=== PATIENT | female | born 1940 | race Caucasian/White ===

== ENCOUNTER 2016-08-18 10:14 | Inpatient (IN) ==
[2016-08-18 10:55] LABS: INR 1.4; Prothrombin Time 14.8 Seconds (9.4-12.1)
[2016-08-18] MEDS ORDERED: Nitroglycerin 1,000 MCG/10 ML VIAL IV ONE (11:25)
[2016-08-18] MEDS ORDERED: Heparin 1,000 UNITS/500 mL NS 500 ML ONE (11:25)
[2016-08-18] MEDS ORDERED: 0.9 % Sodium Chloride 1,000 ML ONE (11:25)
[2016-08-18] MEDS ORDERED: *HR* Heparin 10,000 UNIT/10 ML VIAL ONE (11:25)
--- NOTE | 2016-08-18 11:43 | History & Physical Report ---
Date of Encounter: 08/18/16 Time of Encounter: 11:00 24 Hour HP Update - Instructions Instructions: If the History and Physical is less than 30 days old and was completed prior to A.M. admission and or procedure and has NOT been updated on calendar day of procedure please complete this update prior to performing procedure. - Update Patient reports changes in Medical Condition: No Changes in examination, assessment, or condition: No Changes in Medication: No Preop tests/diagnostics Reviewed: Yes Surgery Remains Indicated: Yes Consent for Planned Operative Procedure(s) Verified: Yes - Pre-Operative Checklist Preoperative Checklist Indicated: No Prophylactic Antibiotic Ordered: No Home Medications Include Beta Didi: Yes Beta Didi Taken Today (Day of Surgery): Yes Beta Didi Taken Yesterday (Day Prior to Surgery): Yes Is VTE Prophylaxis Indicated?: NO
--- NOTE | 2016-08-18 11:44 | Pre-Sedation Evaluation ---
Pre-sedation evaluation - Pre-sedation checklist Date of procedure: 08/18/16 Procedure: C H&P (including ROS) documented in medical record: Yes Previous reaction to sedatives/anesthetics: No Dietary Status: NPO after Midnight Airway Assessment: Patient can open mouth completely, TMJ function normal, Micrognathia (under-bite, receding chin) absent, Neck with adequate range of motion Dentition: No loose teeth or bridges Possible difficult airway: No ASA Classification *see protocol: CLASS II-Mild systemic disease Plan of Care: Pt appropriate candidate for procedure/moderate/conscious sedation , Risks/benefits of procedure/sedation discussed w/ patient/family
[2016-08-18] MEDS: 0.9 % Sodium Chloride 1,000 ML IVC SCH (11:53)
[2016-08-18] MEDS ORDERED: *HR* FentaNYL (PF) 100 MCG/2 ML VIAL ONE (12:22)
[2016-08-18] MEDS ORDERED: *HR* Midazolam HCl 2 MG/2 ML VIAL ONE (12:22)
[2016-08-18] MEDS ORDERED: Nitroglycerin 0.4 MG TAB.SUBL SL PRN (13:23)
[2016-08-18] MEDS ORDERED: *HR* Heparin 5,000 UNIT/ML VIAL IVP PRN ×2 (13:27)
[2016-08-18] MEDS ORDERED: *HR* Heparin 5,000 UNIT/ML VIAL IVP ONE (13:27)
--- NOTE | 2016-08-18 13:47 | Cardiothoracic Consult Note ---
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 She has had previous abnormal stress test and was seen in the cardiology office earlier this week. She was recommended for admission; however, declined. She did consent to outpatient workup and underwent cardiac catheterization today. She was found to have severe 3 vessel CAD and LVEF 30%. The patient has been recommended for CABG. Prior to this procedure, the patient will need an echocardiogram as well as bilateral lower extremity venous duplex to assess the suitability of the greater saphenous vein for conduit material. The operation will be performed by Dr. Jone Jordan early next week. The assessment and plan as outlined above was discussed with the patient and/or family members who expressed understanding and agreement. All questions were answered. Qualifiers: Coronary Disease-Associated Artery/Lesion type: [place] artery [place] vs. transplanted heart: [place] heart Associated angina: with unstable angina Qualified Code(s): I25.110 - Atherosclerotic heart disease of [place] coronary artery with unstable angina pectoris - History of Present Illness Consult date: 08/18/16 Requesting physician: Dania Mix Consult reason: CABG evaluation. Chief complaint: Chest burning History of present illness: Ms. Stephen is a 76 year old lady with hypercholesterolemia and a remote history of stage IIIB (T4 N2 M0) left lung squamous cell carcinoma. The patient has had previous abnormal stress test, the most recent performed April 23, 2015. The exercise portion revealed significant worsening of the baseline ST changes and LVEF 71%. The patient states that 6-7 days ago she began experiencing chest burning which radiated to her back. She was evaluated at [facility] emergency department and thought to have a community acquired pneumonia. She was treated with antibiotics and asked to be seen by her ink technician. The patient was seen by the cardiology office on Sunday, August 16, 2016. She described her symptoms and she was recommended for admission and cardiac workup. She declined admission and stated that she wished to be worked up as an outpatient. Cardiac catheterization today revealed severe 3 vessel CAD and LVEF 30%. In particular the patient has a completely occluded mid LAD after the D1 branch which fills distally via left to left collaterals. The LCx has a 90-95% mid lesion, a 100% occluded OM1 with distal filling via left to left collaterals , a 90% mid RCA lesion, a completely occluded mid RCA with distal filling via [id number] collaterals. The patient has been recommended for CABG. Past Med Surg Social Fam HX - Past Medical History Medical history: cancer (Stage IIIB (T4N2M0) left lung squamous cell cancer), coronary artery disease, DVT, hyperlipidemia, pulmonary embolus, venous stasis ( Left lower extremity.), other (Pericarditis) Psychiatric history: no psych history - Past Surgical History Surgical History: hysterectomy - Social History Smoking Status: Former smoker Packs per day: 1 ppd X 15yrs (Quit 1970) Smokeless Tobacco Status: No Alcohol use: none Drug use: none Occupational status: retired Current living situation: Home - Independent Activity Level: Independent ambulation Recent Out of Country Travel Within the Last 8 Weeks: No Exposure or Possible Exposure to Illness During Travel: No Medications and Allergies Cyanocobalamin/FA/Pyridoxine [[place]bee Tablet] 1 each PO DAILY 10/04/15 [History] Levothyroxine [Synthroid] 88 mcg PO 0630 10/04/15 [History] Pravastatin Sodium [Pravachol] 40 mg PO DAILY 10/04/15 [History] Warfarin [Coumadin] 5 mg PO 3XW 10/04/15 [History] Warfarin [Coumadin] 7.5 mg PO 3XW 10/04/15 [History] Cephalexin [Keflex] 500 mg PO TID #30 capsule 08/13/16 [Rx] Aspirin Enteric Coated [Aspirin EC] 81 mg PO DAILY 08/18/16 [History] Isosorbide MONOnitrate (24 HR) [Imdur] 30 mg PO DAILY 08/18/16 [History] Levothyroxine [Synthroid] 88 mcg PO DAILY 08/18/16 [History] Allergies rofecoxib [From Vioxx] Allergy (Verified 08/18/16 10:36) Palpitations All Systems Review: A 10-system review of systems was performed and is negative for pertinent findings except as documented above in the HPI. Physical Examination Vital Signs, Last 4 Hours Temp Pulse Resp BP Pulse Ox 08/18/16 11:36 98.6 F 91 18 104/67 95 General: Conversant, No Apparent Distress Neck: No JVD, Normal carotid pulses Cardiac: Reg Rate and Rhythm, Normal S1 and S2, No Murmur Lungs: Normal Breath Sounds, No Wheeze, Rales, Rhonchi Neuro: Alert and responsive, No focal deficits noted Vascular: Normal capillary refill Abdomen: Soft, Non-tender Skin: No rashes noted on visualized skin Musculoskeletal: No Chest Wall Tenderness Extremities: No Clubbing, No Cyanosis, No Edema Results Lab Results, Last 24 hours 08/18/16 10:36 INR 1.4 D Consult Discharge Plan - Plan Referrals: Jarvis Isaacs MD [Primary Care Provider] -
--- NOTE | 2016-08-18 14:49 | Invasive Diagnostic Lab Proc ---
Name: Stella Stephen Date of Study: 08/18/2016 Date: 1940 Ht: 68.0in Medical Record#: [id number] Age: 76 Wt: 175.00lb Gender: Female BSA: 1.93 Order #: [id number] BMI: 26.61 Physicians Procedure Physician: Dania Mix MD, [facility] Referring MD: Jarvis Isaacs MD Referring MD: Staff Name Position Time In Yobany Abad RN Pre op Sites, Christy RT (R) Pre-Op Nurse Christy Almeida RT (R) Monitor 12:22 PM Evangelist Almeida RT (R) Scrub 12:23 PM Christel Khanna RN Rivet Bucker 12:23 PM Indications Indication Abnormal Test - Stress Procedures Performed Procedure L HRT ARTERY/VENTRICLE ANGIO Pre-Procedure Checklist Informed consent is complete signed and on chart. H\\T\\P is on chart. ID band is on and ID verified with patient. Patient NPO for procedure The procedure was described for the patient and questions were answered. Blood Pressure: 104/67 ECG is on chart. Rhythm: NSR Plan of Care Patient will tolerate the procedure without complications. Adequate level of comfort will be maintained. Hemodynamics will remain stable Patient will recover from procedure without complications. Respiratory function will be maintained. Cardiac rhythm will remain stable. Patient temperature will be maintained. Patient and/or family have verbalized understanding of the procedure. Patient Education Chief Complaint/Reason for Test: Cardiac Cath Developmental Category: Geriatric (65+ years) Developmentally Appropriate for Age: Yes Learning Barriers: None Education Needs: Procedure Education Method: Verbal Information Taught: Cardiac Cath Educational Evaluation: Able to repeat information Intravenous Access Time IV Size Location DC'd Fluid/Drip Rate Units RN Started with 20g 1 1/4" Lt Antecubital 0.9NaCl 25 ml/hr Sites, Christy RT (R) Allergies rofecoxib Vital Signs Time BP (mmHg) HR (bpm) O2 Sat. RR (bpm) LOC 11:45 AM 104 / 67 91 98 % 16 5 = Fully awake and oriented or at pre-proc level 12:26 PM / % 5 = Fully awake and oriented or at pre-proc level 12:26 PM / % 4 = Oriented but drowsy 12:23 PM 103 / 64 101 96 % 12:28 PM 95 / 59 92 87 % 26 12:33 PM 97 / 63 97 96 % 9 12:38 PM 94 / 61 104 97 % 12:43 PM 95 / 68 104 98 % 01:20 PM 107 / 72 95 98 % 16 5 = Fully awake and oriented or at pre-proc level 01:33 PM 114 / 70 101 98 % 16 5 = Fully awake and oriented or at pre-proc level 01:45 PM 104 / 73 97 98 % 16 5 = Fully awake and oriented or at pre-proc level 02:05 PM 112 / 73 102 96 % 16 5 = Fully awake and oriented or at pre-proc level 02:30 PM 114 / 79 110 94 % 18 5 = Fully awake and oriented or at pre-proc level Procedural Medications Time Medication Dose Units Method Given By 12:26 PM Oxygen 2 L/min nasal cannula Christel Khanna RN 12:26 PM Versed 2 mg Intravenous Christel Khanna RN 12:26 PM Fentanyl 50 mcg Intravenous Christel Khanna RN 12:29 PM Oxygen 4 L/min nasal cannula Christel Khanna RN 12:33 PM Lidocaine 2% 13 ml Subcutaneous Dania Mix MD, [facility] ASA Classification: CLASS II- Mild systemic disease (i.e. well-controlled diabetes, hypertension, asthma, cigarette smoking) Jimmie Score Preprocedure Postprocedure Activity 2- Moves 4 extremities sustained head lift Activity 2- Moves 4 extremities sustained head lift Circulation 2- SBP +/= 20 points of pre-anesthetic level Circulation 2- SBP +/= 20 points of pre-anesthetic level Consciousness 2- Awake and alert oriented x 3 Consciousness 2- Awake and alert oriented x 3 O2 Saturation 2- Able to maintain O2 satruation of 92% on room air O2 Saturation 2- Able to maintain O2 satruation of 92% on room air Respiratory 2- Able to deep breathe and cough well Respiratory 2- Able to deep breathe and cough well Total Score 10 Total Score 10 Contrast Agent: Isovue Diagnostic Contrast: 63 ml Total Contrast: 63 ml Fluoro Dose: 238 mGy Procedure Log Time Note Enter By 11:14 AM Pt arrived to labour market economist 2 at 12:16 tsites 11:48 AM CathStat 12:14 PM Physician arrived 12:14 tsites 12:14 PM Meet and greet completed tsites 12:14 PM Sign in performed according to hospital policy. tsites 12:14 PM Procedure start 12:14 tsites 12:15 PM Case Delayed no tsites 12: PM Christy Almeida RT (R) Position: Monitor Time in: : tsites 12:23 PM Evangelist Almeida (R) Position: Scrub Time in: tsites 12:23 PM Christel Khanna RN Position: Rivet Bucker Time in: tsites 12:23 PM Patient charges- Angio tray pack, Navilyst 3mm J, Pulse Oximetry and ACIST tubing and transducer tsites 12:23 PM IV Supplies used: J loop Angio Cath. tsites 12:23 PM Vitals capture started with the following parameters, Patient=Adult, Interval=5 min, Initial Zzsxycxw=708 mmHg, Deflation Rate=5 mmHg, Cuff placed on Left Leg 12:23 PM Hair removed from procedure site in procedure lab using clippers. Bilateral groin prepped with Chloraprep by Evangelist Almeida (Nicole), safety strap applied then patient was draped. Skin intact. tsites 12: PM YY=640 bpm, JACM=894/64 mmhg, SpO2=96.0 % 12:24 PM Recorded ECG: DI=234 Condition=Condition 1 12: PM ASA Class CLASS II- Mild systemic disease (i.e. well-controlled diabetes, hypertension, asthma, cigarette smoking) twilson 12: PM Time: 12: Oxygen on at 2 L/min per nasal cannula by Christel Khanna RN twilson : PM Time: 12: Versed 2 mg Intravenous Given by Christel Khanna RN twilson 12: PM Time: 12: Fentanyl 50 mcg Intravenous Given by Christel Khanna RN ilson 12: PM Time: 12: Patient comfortable and pain free: Yes twilson 12: PM Time: 12:LOC: 5 = Fully awake and oriented or at pre-proc level twilson 12: PM HR=92 bpm, NIBP=95/59 mmhg, SpO2=87.0 %, Resp=26 B/min 12: PM Time: 12: Oxygen on at 4 L/min per nasal cannula by Christel Khanna RN ilson 12:31 PM Pressure channel 1 zeroed. 12:32 PM Time out performed according to hospital policy twilson 12:33 PM Time: : 13 ml Lidocaine 2% to right groin Subcutaneous Given by Dania Mix MD, [facility] twilson 12:33 PM HR=97 bpm, NIBP=97/63 mmhg, SpO2=96.0 %, Resp=9 B/min 12:34 PM Access obtained by percutaneous puncture. 5Fr 10cm Terumo [place] sheath placed in right Femoral artery. [id number] twilson 12:34 PM 5Fr FL 4 catheter inserted over the wire DNC twilson 12:34 PM Wire removed, intact. twilson 12:34 PM Recorded Pressure: Ao, HR=95, Condition=Condition 1 (Aorta) Ao 68/50/59 12:35 PM LCA angiography performed in multiple views. twilson 12:35 PM Recorded Pressure: Ao, HR=93, Condition=Condition 1 (Aorta) Ao 81/63/71 12:36 PM Wire reinserted. twilson 12:36 PM 5Fr FR 4 catheter inserted over the wire DNC twilson 12:36 PM Wire removed, intact. twilson 12:37 PM Recorded Pressure: Ao, DV=436, Condition=Condition 1 (Aorta) Ao 84/68/76 12:37 PM RCA angiography performed in multiple views. twilson 12:37 PM Recorded Pressure: Ao, KK=834, Condition=Condition 1 (Aorta) Ao 82/68/75 12:38 PM Catheter removed twilson 12:38 PM 5Fr Pigtail catheter inserted over the wire DNC twilson 12:38 PM Catheter selectively placed in left ventricle twilson 12:38 PM MN=045 bpm, NIBP=94/61 mmhg, SpO2=97.0 % 12:38 PM Wire removed, intact. twilson 12:39 PM Pressure channel 1 zeroed. 12:39 PM Bolus angiogram of left Ventricle complete: 8 ml/sec for a total of 24 mls twilson 12:39 PM Recorded Pressure: LV, DU=523, Condition=Condition 1 (Left Ventricle) LV 80/28/29 12:39 PM Catheter removed twilson 12:39 PM Recorded Pressure: LV, Ao, BD=339, Condition=Condition 1 (Left Ventricle) LV 86/42/51, (Aorta) Ao 76/60/68 12:40 PM Physician reviewing films twilson 12:40 PM Cardiothoracic surgeon consulted by physician twilson 12:41 PM Bolus angiogram of right Femoral complete: 2 ml/sec for a total of 4 mls twilson 12:41 PM Time: 12:26 Patient comfortable and pain free: Yes twilson 12:41 PM Time: 12:26LOC: 4 = Oriented but drowsy twilson 12:42 PM Procedure completed at 12:42 twilson 12:43 PM Sign out completed: Radiation Dose 237.65 mGy Fluoro Time: 0.9 Isovue 370 - 200ml contrast 63.4 ml given by Dania Mix MD, [facility]. Complications: NoneCardiac Rehab Consult needed: NoConfirmed administered medications: Yes twilson 12:43 PM Isovue 370 - 200ml,1 Bottle(s) used. twilson 12:43 PM Arterial sheath pulled, Mynx closure device used and was Successful [id number] S/N. twilson 12:43 PM Post ECG NSR twilson 12:43 PM IF=359 bpm, NIBP=95/68 mmhg, SpO2=98.0 % 12:44 PM Post Blood Pressure 95/68 twilson 12:44 PM 12:44 Post Pulses Bilateral DP \\T\\ PT 2+ twilson 12:44 PM 12:44 Post Pulses Bilateral radial 2+ twilson 12:44 PM Information taught Cardiac Cath and Mynx twilson 12:45 PM Education needs Procedure, Plan of Care, and Responsibilities of Patient in Care twilson 12:45 PM Learning barriers :None twilson 12:45 PM Education Methods Verbal twilson 12:45 PM Education evaluation Able to repeat information twilson 12:45 PM Site status No bleeding/hematoma - Rt Groin as reported by Evangelist Almeida RT (R) at 12:45 twilson 12:45 PM Opsite applied twilson 12:47 PM Lesion found in Distal RCA. Pre Stenosis: 100 Pre LAURA Flow: twilson 12:48 PM Lesion found in Mid LAD. Pre Stenosis: 100 Pre LAURA Flow: twilson 12:49 PM Lesion found in Mid Circumflex. Pre Stenosis: 99 Pre LAURA Flow: twilson 12:49 PM Vitals capture stopped. 12:49 PM Lesion found in 1st Marginal. Pre Stenosis: 100 Pre LAURA Flow: twilson 12:49 PM Circumflex, Obtuse Marginal, Left Posterior Descending, and Left Posterolateral Coronary Arteries with 100 % stenosis. If graft is supplying this area, 0 % stenosis twilson 12:49 PM Mid/Distal Left Anterior Descending Coronary Artery and diagonal branches with 100% stenosis. If graft is supplying this area, 0 % stenosis twilson 12:49 PM Right Coronary, Right Posterior Descending Arteries with Right Posterolateral and Acute Marginal branches with 100 % stenosis. If graft is supplying this area, 0 % stenosis twilson 12:50 PM Family placed in consult room. twilson 12:52 PM Bed request placed. twilson 01:01 PM Patient will go to [facility]. twilson 01:03 PM Report given to Christy Saunders RN Pt taken to Holding room Room #1. 13:03 twilson 01:03 PM Delay to floor Room not clean twilson 01:03 PM Coronary Dominance: right twilson 01:03 PM Lesion found in Proximal RCA. Pre Stenosis: 40 Pre LAURA Flow: twilson 01:04 PM Lesion found in Mid RCA. Pre Stenosis: 99 Pre LAURA Flow: twilson 01:04 PM Lesion found in LMCA. Pre Stenosis: 40 Pre LAURA Flow: twilson 01:04 PM Lesion found in Proximal LAD. Pre Stenosis: 50 Pre LAURA Flow: twilson 01:04 PM Lesion found in Proximal Circumflex. Pre Stenosis: 30 Pre LAURA Flow: twilson 01:04 PM Left Main Coronary Artery with 40% stenosis twilson 01:04 PM Proximal Left Anterior Descending Coronary Artery with 50% stenosis. If graft is supplying this territory, 0 % stenosis. twilson 01:05 PM Patient will recover in holding room 1 until 2NE19 bed is ready. twilson 01:09 PM Patient out of room: 13:09 twilson 01:20 PM pt checked into HR 1, Dr. Collado at bedside with family. No complaints at this time, post cath meal tray ordered [email or web address] 01:41 PM pt and family given coffee [email or web address] 02:04 PM pt's family assisted with belongings [email or web address] 02:04 PM pt assisted with post cath meal tray [email or web address] 02:39 PM Report given to Vaishnavi RODRIGUEZ and patient taken to [facility] Complications Complication None Hemodynamics Pressures Site Systolic/A Wave Diastolic/V Wave Mean AO 68 50 59 AO 81 63 71 AO 84 68 76 AO 82 68 75 LV 80 28 29 LV 86 42 51 AO 76 60 68 Post Procedure Information Blood Pressure: 95/68 mmHg Rhythm: NSR Post procedural instructions were given Surgery consult for CABG Closure Device Time Device Success/Fail 08/18/2016 12:46:00 PM MynxGrip Successful Site Checks Time Location Status Staff Sheath In? Note 12:45 PM Rt Groin No bleeding/hematoma Evangelist Almeida RT (R) 01:19 PM Rt Groin No bleeding/ No Hematoma Angella Velázquez RN 01:30 PM Rt Groin No bleeding/ No Hematoma Angella Velázquez RN 01:45 PM Rt Groin No bleeding/ No Hematoma Yeni Cruz RN 02:05 PM Rt Groin No bleeding/ No Hematoma Yeni Cruz RN 02:30 PM Rt Groin No bleeding/ No Hematoma Yobany Abad RN Pulses Time Site Pre-Procedure Post-Procedure Note 08/18/2016 11:38:00 AM Bilateral DP \\T\\ PT 2+ 08/18/2016 11:45:00 AM Bilateral radial 2+ 12:44:00 PM Bilateral DP \\T\\ PT 2+ 12:44:00 PM Bilateral radial 2+ 08/18/2016 1:20:00 PM Bilateral DP \\T\\ PT 2+ 08/18/2016 1:41:00 PM Bilateral DP \\T\\ PT 2+ 08/18/2016 2:05:00 PM Bilateral DP \\T\\ PT 2+ 08/18/2016 2:30:00 PM Bilateral DP \\T\\ PT 2+ Updated by Christy Almeida RT (R) on 08/18/2016 2:40:02 PM electronically signed on 08/18/2016 2:41:07 PM with status of Final
[2016-08-18 16:15] LABS: Hemoglobin 14.5 g/dL (11.5-15.4); Mean Corpuscular Hemoglobin 31.7 pg (28.0-33.3); Mean Corpuscular Volume 96.3 fL (83.0-100.0); Mean Platelet Volume 10.2 fL (9.4-12.4); Platelet Count 182 K/mcL (140-400); Red Blood Count 4.57 M/mcL (3.82-4.97); Red Cell Distribution Width 13.1 % (11.5-14.5)
[2016-08-18 16:21] LABS: INR 1.3; Prothrombin Time 14.4 Seconds (9.4-12.1)
[2016-08-18 16:24] LABS: Activated Partial Thrombo Time 31.3 Seconds (26.0-36.0)
--- NOTE | 2016-08-18 17:18 | Invasive Diagnostic Lab ---
Name: Stella Stephen Date of Study: 08/18/2016 Date: 1940 Ht: 172.7 cm /68.0 in Medical Record#: [id number] Age: 76 Wt: 79.4 kg / 175.00 lb Account/Order#: [id number] Gender: Female BSA: 1.93 Order #: [id number] Fluoro Dose: 238 mGy BMI: 26.61 Procedure Physician: Dania Mix MD, [facility] Referring MD: Jarvis Isaacs MD Referring MD: Procedures Performed: LEFT HEART CATH Indications: Abnormal Test - Stress Impressions: There is severe three vessel coronary artery disease. There is moderately severe LV Dysfunction EF 35% Recommendations: Optimal medical therapy of patient's disease. Aggressive risk factor modification. Evaluate for coronary artery bypass surgery. History/Risk Factors: dvt pe Dyslipidemia Procedure Access obtained in the right Femoral artery by percutaneous puncture Complications: None Contrast: Isovue 63ml Closure Device: MynxGrip Hemodynamics: Pressures Site Systolic/ A Wave Diastolic/ V Wave End Diastolic/ Mean HR AO 68 50 59 95 AO 81 63 71 93 AO 84 68 76 105 AO 82 68 75 104 LV 80 28 29 104 LV 86 42 51 103 AO 76 60 68 103 LV Ventriculography Ejection Method: LV Gram Ejection Fraction: 35% Wall Motion: ORTIZ Anterobasal Mild Hypokinesis Anterolateral Mild Hypokinesis Apical: Mild Hypokinesis Inferoapical Moderate Hypokinesis Inferobasal Akinesis Coronary Dominance: right Lesion Findings/Interventions * Left Main Coronary Artery There is a 40% stenosis in the LMCA. * Left Anterior Descending There is a 50% stenosis in the Proximal LAD. There is a 100% stenosis in the Mid LAD- HAND HARDENER. Mid/distal LAD fill via L to L collaterals. * Circumflex There is a 30% stenosis in the Proximal Circumflex. There is a 99% stenosis in the Mid Circumflex- calcified. There is a 99% stenosis in the 1st Marginal. Fills via L to L collaterals. * Right Coronary Artery There is a 40% stenosis in the Proximal RCA. There is a 99% stenosis in the Mid RCA. There is a 100% stenosis in the Distal RCA- HAND HARDENER. Distal RCA and R PDA fill via L to R and R to R collaterals. Updated by RT mAilcar (R) on 08/18/2016 1:09:37 PM Dania Mix MD, [facility] electronically signed on 08/18/2016 5:12:29 PM with status of Final
[2016-08-18] MEDS: Heparin 25,000 UNIT/500 ML D5W 25,000 UNIT/500 ML MLS IVC SCH (19:51)
[2016-08-18] MEDS: Acetaminophen 325 MG TABLET PO PRN (19:56)
[2016-08-19] MEDS: 0.9 % Sodium Chloride 1,000 ML IVC SCH ×2 (02:25→11:50)
[2016-08-19 02:33] LABS: Basophils % 0.4 %; Eosinophils # 0.2 K/mcL (0.0-0.6); Eosinophils % 2.3 %; Hematocrit 38.6 % (35.3-44.9); Hemoglobin 12.7 g/dL (11.5-15.4); Immature Granulocytes % 0.5 % (0-4); Immature Platelets 3.5 % (1.1-6.1); Lymphocytes # 1.2 K/mcL (0.6-4.6); Lymphocytes % 11.8 %; Mean Corpuscular HGB Conc 32.9 g/dL (31.6-35.5); Mean Corpuscular Hemoglobin 31.8 pg (28.0-33.3); Mean Corpuscular Volume 96.7 fL (83.0-100.0); Mean Platelet Volume 10.3 fL (9.4-12.4); Monocytes % 10.1 %; Neutrophils # 7.5 K/mcL (1.6-8.9); Platelet Count 164 K/mcL (140-400); Red Blood Count 3.99 M/mcL (3.82-4.97); Red Cell Distribution Width 13.2 % (11.5-14.5); Segmented Neutrophils % 74.9 %
[2016-08-19 02:52] LABS: BUN/Creatinine Ratio 23 (6-26); Blood Urea Nitrogen 22 mg/dL (7-20); Calcium 8.5 mg/dL (8.6-10.8); Carbon Dioxide 24 mEq/L (19-29); Chloride 108 mEq/L (98-109); Glucose 121 mg/dL (70-99); Osmolality,Calculated 295 (280-300); Potassium 4.4 mEq/L (3.5-4.5); Sodium 140 mEq/L (136-145); eGFR For African Americans > 60 (> 60); eGFR For Non-African Americans 57 (> 60)
[2016-08-19 03:02] LABS: Activated Partial Thrombo Time 250.9 Seconds (26.0-36.0)
[2016-08-19 03:09] LABS: Heparin anti-factor XA UFH 0.94 IU/mL (0.30-0.70)
[2016-08-19] MEDS ORDERED: Ipratropium/Albuterol Neb 3 ML IH PRN (05:44)
[2016-08-19] MEDS ORDERED: Aspirin Enteric Coated 81 MG Tablet PO SCH (09:00)
--- NOTE | 2016-08-19 10:12 | Cardiology Progress Note ---
Date of Encounter: 08/19/16 Time of Encounter: 09:00 Assessment and Plan (1) CAD (coronary artery disease) Current Visit: Yes Status: Acute [facility] 08/18/16: severe 3v CAD--40% LMCA, 50% pLAD, 100% mLAD-ORTHOPEDIC TECH (mid to distal fills via left to left collaterals), 30% pLCx, 99% mLCx--calcified, 99% 1st OM ( left to left collaterals); 40% pRCA, 99% mRCA, 100% dRCA--ORTHOPEDIC TECH, distal RCA and right PDA fill with left to right and right to right collaterals, EF 35% per LV gram. Patient has been recommended for CABG, awaiting CT surgery recommendations. Will likely be high-risk surgical candidate given LV dysfunction. Echocardiogram pending. Continue heparin gtt, asa, statin, and betablocker. She has been chest pain free since admission. Qualifiers: Coronary Disease-Associated Artery/Lesion type: [place] artery [place] vs. transplanted heart: [place] heart Associated angina: with unstable angina Qualified Code(s): I25.110 - Atherosclerotic heart disease of [place] coronary artery with unstable angina pectoris (2) Systolic CHF Current Visit: Yes Status: Chronic Newly diagnosed systolic CHF, EF 35% per LV gram. Betablocker and ACEi started yesterday s/p [facility]. Hx of mobitz type I in the past , will monitor telemetry closely. Will stop supplemental IVF, recommend Na/fluid restriction diet. Will obtain CXR, x1 dose of oral lasix now. Recommend strict I&O and daily weights. TTE 03/08/15: LVEF 60-65%, mild LVDD, normal RV structure and function, calcified noncoronary cusp of the AV with reduced mobility, mild AR, mild (MG =12 mmHg), normal wall motion. Repeat echo pending. Qualifiers: Congestive heart failure chronicity: chronic Qualified Code(s): I50.22 - Chronic systolic (congestive) heart failure (3) Non-small cell cancer of left lung Current Visit: No Status: Resolved Has been in remission for 9 years. (4) DVT (deep venous thrombosis) Current Visit: Yes Status: Chronic Hx of DVT to LLE, meryl in 2007. Has been on coumadin prior to admission. Continue heparin gtt for now. Qualifiers: DVT location: lower extremity Affected thrombotic vein of extremity: unspecified vein of extremity Laterality: left Chronicity: chronic Qualified Code(s): I82.502 - Chronic embolism and thrombosis of unspecified deep veins of left lower extremity Discussion w patient/family: The assessment and plan as outlined above was discussed with the patient and/or family members who expressed understanding and agreement. All questions were answered. Thank you for involving us in the care of your patient. Please call with any questions. The patient was discussed and reviewed with Dr. Flores who agrees with plan as stated above. Subjective Principal diagnosis: MVD Interval history: Seen and examined. Patient admitted yesterday after outpatient [facility] due to severe 3 vessel CAD--CT surgery referral recommended for CABG. Patient sitting up at bedside eating breakfast, states did not sleep well overnight. Reports episode of shortness of breath earlier this AM, symptoms seemed to improve after breathing tx. Denies chest pain or discomfort since admission. No issues with right groin cath site. Awaiting recommendations from Dr. Jordan regarding CABG. Objective Vital Signs, Last 4 Hours Temp Pulse Resp BP Pulse Ox 08/19/16 06:43 97.7 F 99 16 109/68 98 General: Conversant, No Apparent Distress HEENT: Atraumatic, Normocephaly Cardiac: Reg Rate and Rhythm (tachycardiac), Other (systolic murmur 2/6) Lungs: Other (few wheezes) Neuro: Alert and responsive, No focal deficits noted Abdomen: Soft, Non-Tender Skin: No rashes noted on visualized skin Musculoskeletal: No Chest Wall Tenderness Extremities: No Edema, Normal Pulses Results 08/19/16 02:01 08/19/16 02:01 Lab Results 08/18/16 08/18/16 08/18/16 10:36 16:01 16:01 WBC 8.0 Hgb 14.5 Hct 44.0 Plt Count 182 INR 1.4 D 1.3 APTT 31.3 Sodium Potassium Chloride Carbon Dioxide BUN Creatinine Glucose Calcium 08/19/16 08/19/16 08/19/16 02:01 02:01 02:01 WBC 10.1 Hgb 12.7 D Hct 38.6 Plt Count 164 INR APTT 250.9 H* D Sodium 140 Potassium 4.4 Chloride 108 Carbon Dioxide 24 BUN 22 H Creatinine 0.96 Glucose 121 H Calcium 8.5 L 08/19/16 09:29 WBC Hgb Hct Plt Count INR APTT 59.3 H D Sodium Potassium Chloride Carbon Dioxide BUN Creatinine Glucose Calcium - Imaging and Cardiology Echo: pending Cardiac cath: report reviewed Other Results: 12 hour tele: avg HR=99 SR. No significant event, pause, or block noted. - EKG Interpretation EKG results cardiology: personally reviewed Consult Discharge Plan - Plan Referrals: Jarvis Isaacs MD [Primary Care Provider] -
[2016-08-19] MEDS ORDERED: *HR* LORazepam 0.5 MG TABLET PO PRN (11:16)
--- NOTE | 2016-08-19 11:17 | Cardiothoracic Progress Note ---
Date of Encounter: 08/19/16 Time of Encounter: 11:14 - Assessment and plan (1) CAD (coronary artery disease) Current Visit: Yes Status: Acute The assessment and plan as outlined above was discussed with the patient and/or family members who expressed understanding and agreement. All questions were answered. The patient is a poor candidate for open heart surgery in my opinion. Ejection fraction on the cardiac catheterization looks quite poor. Her symptoms are mainly shortness of breath and heart failure. I feel the best options are medical therapy or high risk angioplasty. If surgery is felt to be required, I would recommend transfer to [place] because of her poor ventricular function and high risk status. Qualifiers: Coronary Disease-Associated Artery/Lesion type: [place] artery [place] vs. transplanted heart: [place] heart Associated angina: with unstable angina Qualified Code(s): I25.110 - Atherosclerotic heart disease of [place] coronary artery with unstable angina pectoris - Subjective Interval history: The patient has had no chest pain in the hospital. She is dyspneic at rest and short of breath. She did have a history of lung cancer 9 years ago which was treated with chemotherapy and radiation therapy. She has had multiple deep venous thrombosis on her left leg. Oxgyen Flow Rate Oxygen Flow Rate (LPM) 3 Weight 08/17/16 08/18/16 08/19/16 23:59 23:59 23:59 Weight 79.379 kg The patient is short of breath at rest and has difficulty speaking. Lungs have scattered rales at the bases. Heart is in a regular rate and rhythm. - Labs 08/19/16 02:01 08/19/16 02:01 Lab Results, Last 24 hours 08/18/16 08/18/16 08/19/16 16:01 16:01 02:01 WBC 8.0 10.1 Hgb 14.5 12.7 D Hct 44.0 38.6 Plt Count 182 164 INR 1.3 APTT 31.3 Sodium Potassium Chloride Carbon Dioxide BUN Creatinine Glucose Calcium 08/19/16 08/19/16 08/19/16 02:01 02:01 09:29 WBC Hgb Hct Plt Count INR APTT 250.9 H* D 59.3 H D Sodium 140 Potassium 4.4 Chloride 108 Carbon Dioxide 24 BUN 22 H Creatinine 0.96 Glucose 121 H Calcium 8.5 L Consult Discharge Plan - Plan Referrals: Jarvis Isaacs MD [Primary Care Provider] -
[2016-08-19] MEDS: Acetaminophen 325 MG TABLET PO PRN ×2 (11:39→19:23)
[2016-08-19] MEDS: Aspirin 81 MG TAB.CHEW PO SCH (11:41)
[2016-08-19] MEDS: Isosorbide MONOnitrate (24 HR) 30 MG TAB.ER.24H PO SCH (11:41)
[2016-08-19] MEDS ORDERED: 0.9 % Sodium Chloride 1,000 ML ONE (11:44)
[2016-08-19] MEDS ORDERED: Ondansetron 4 MG/2 ML VIAL IVP PRN (11:54)
[2016-08-19] MEDS ORDERED: Furosemide 40 MG TABLET PO ONE (12:00)
--- NOTE | 2016-08-19 13:52 | Carotid Imaging Report ---
Carotid Duplex Patient Name:Stella Stephen Order Number:[id number] Procedure Date:08/19/2016 Date:2Age:76 yrs Gender:Female Rt.BP:109 / 68 mmHgHeart Rate: Location:[facility] Room #: 2NE19 Fuel Operator:Zeina Carrera, RVT, RDCS Referring MD:Dania Mix MD, [facility] can coverer:Jarvis Isaacs MD Reading MD:Franco Garza MD Primary Indications:preop CABG Impressions: The bilateral carotid arteries have minimal plaque throughout. Findings Carotid Duplex: Right: The right proximal common carotid artery has a PSV of 85 cm/s and a EDV of 12 cm/s. The right mid common carotid artery has a PSV of 85 cm/s and a EDV of 19 cm/s. The right distal common carotid artery has a PSV of 77 cm/s and a EDV of 17 cm/s. The right bifurcation has a PSV of 66 cm/s and a EDV of 16 cm/s. There is smooth heterogeneous plaque. The right proximal internal carotid artery has a PSV of 89 cm/s and a EDV of 18 cm/s. There is smooth heterogeneous plaque. The right mid internal carotid artery has a PSV of 86 cm/s and a EDV of 20 cm/s. The right distal internal carotid artery has a PSV of 83 cm/s and a EDV of 17 cm/s. The right eca has a PSV of 51 cm/s and a EDV of 1 cm/s. The right vertebral artery has a PSV of 29 cm/s and a EDV of 9 cm/s. Left: The left proximal common carotid artery has a PSV of 105 cm/s and a EDV of 13 cm/s. The left mid common carotid artery has a PSV of 91 cm/s and a EDV of 12 cm/s. The left distal common carotid artery has a PSV of 92 cm/s and a EDV of 19 cm/s. The left bifurcation has a PSV of 73 cm/s and a EDV of 19 cm/s. There is smooth heterogeneous plaque. The left proximal internal carotid artery has a PSV of 68 cm/s and a EDV of 14 cm/s. There is smooth heterogeneous plaque. The left mid internal carotid artery has a PSV of 74 cm/s and a EDV of 22 cm/s. The left distal internal carotid artery has a PSV of 80 cm/s and a EDV of 25 cm/s. The left eca has a PSV of 54 cm/s. The left vertebral artery has a PSV of 51 cm/s and a EDV of 13 cm/s. Carotid Results Right PSV EDV Assessment Proximal CCA 85 12 Mid CCA 85 19 Distal CCA 77 17 Bifurcation 66 16 Non Stenotic Plaque Proximal ICA 89 18 Non Stenotic Plaque Mid ICA 86 20 Distal ICA 83 17 ECA 51 1 Vertebral Artery 29 9 Left PSV EDV Assessment Proximal CCA 105 13 Mid CCA 91 12 Distal CCA 92 19 Bifurcation 73 19 Non Stenotic Plaque Proximal ICA 68 14 Non Stenotic Plaque Mid ICA 74 22 Distal ICA 80 25 ECA 54 0 Vertebral Artery 51 13 Ratio's Right ICA/CCA Ratio: 1.05 Left ICA/CCA Ratio: 0.88 Updated by Franco Garza MD on 08/19/2016 1:47:05 PM electronically signed on 08/19/2016 1:47:25 PM with status of Final
[2016-08-19] MEDS ORDERED: Simethicone 80 MG TAB.CHEW PO PRN (16:32)
[2016-08-19] MEDS ORDERED: Furosemide 40 MG/4 ML VIAL IVP SCH (17:00)
[2016-08-19] MEDS: Heparin 25,000 UNIT/500 ML D5W 25,000 UNIT/500 ML MLS IVC SCH (18:58)
[2016-08-20 01:31] LABS: BUN/Creatinine Ratio 24 (6-26); Blood Urea Nitrogen 20 mg/dL (7-20); Calcium 8.6 mg/dL (8.6-10.8); Carbon Dioxide 27 mEq/L (19-29); Chloride 103 mEq/L (98-109); Glucose 128 mg/dL (70-99); Osmolality,Calculated 292 (280-300); Potassium 3.9 mEq/L (3.5-4.5); Sodium 139 mEq/L (136-145); eGFR For African Americans > 60 (> 60); eGFR For Non-African Americans > 60 (> 60)
--- NOTE | 2016-08-20 09:20 | Cardiology Progress Note ---
Date of Encounter: 08/20/16 Time of Encounter: 07:30 Assessment and Plan (1) CAD (coronary artery disease) Current Visit: Yes Status: Acute [facility] 08/18/16: severe 3v CAD--40% LMCA, 50% pLAD, 100% mLAD-ENTRY LEV[employer] PROGRAMMER (mid to distal fills via left to left collaterals), 30% pLCx, 99% mLCx--calcified, 99% 1st OM ( left to left collaterals); 40% pRCA, 99% mRCA, 100% dRCA--ENTRY LEVEL PROGRAMMER, distal RCA and right PDA fill with left to right and right to right collaterals, EF 35% per LV gram. TTE 08/19/16: LVEF 40% with SWMA, mild to moderate , mild AR, mild MR, and large pleural effusion. Patient has been recommended for CABG; discussed with Dr. Jordan, she is a high- risk candidate given her LV dysfunction, he recommends transfer to tertiary care center, [facility] or [place] Spoke with patient this AM, she remains undecided on [facility] vs. [facility], she would like to speak with Dr. Jordan again. Anticipate transfer today. Continue heparin gtt, asa, statin, and betablocker. She has been chest pain free since admission. Qualifiers: Coronary Disease-Associated Artery/Lesion type: [place] artery [place] vs. transplanted heart: [place] heart Associated angina: with unstable angina Qualified Code(s): I25.110 - Atherosclerotic heart disease of [place] coronary artery with unstable angina pectoris (2) Systolic CHF Current Visit: Yes Status: Chronic Newly diagnosed systolic CHF, EF 35% per LV gram. Betablocker and ACEi started yesterday s/p [facility]. Hx of mobitz type I in the past , will monitor telemetry closely. Will stop supplemental IVF, recommend Na/fluid restriction diet. CXR demonstrated bilateral pleural effusions, IV lasix started yesterday; question accuracy of I&O. Dyspnea nearly resolved, will change to po lasix today. Recommend strict I&O and daily weights. TTE 03/08/15: LVEF 60-65%, mild LVDD, normal RV structure and function, calcified noncoronary cusp of the AV with reduced mobility, mild AR, mild (MG =12 mmHg), normal wall motion. TTE 08/19/16: LVEF 40% with SWMA, mild to moderate , mild AR, mild MR, and large pleural effusion. Qualifiers: Congestive heart failure chronicity: chronic Qualified Code(s): I50.22 - Chronic systolic (congestive) heart failure (3) Non-small cell cancer of left lung Current Visit: No Status: Resolved Has been in remission for 9 years. (4) DVT (deep venous thrombosis) Current Visit: Yes Status: Chronic Hx of DVT to LLE, dx in 2007. Has been on coumadin prior to admission. Continue heparin gtt for now. Qualifiers: DVT location: lower extremity Affected thrombotic vein of extremity: unspecified vein of extremity Laterality: left Chronicity: chronic Qualified Code(s): I82.502 - Chronic embolism and thrombosis of unspecified deep veins of left lower extremity Discussion w patient/family: The assessment and plan as outlined above was discussed with the patient and/or family members who expressed understanding and agreement. All questions were answered. Thank you for involving us in the care of your patient. Please call with any questions. The patient was discussed and reviewed with Dr. Flores who agrees with plan as stated above. Subjective Principal diagnosis: MVD Interval history: Seen and examined. Patient admitted 08/18/16 after outpatient [facility] due to severe 3 vessel CAD--CT surgery referral recommended for CABG. Patient sitting up at bedside eating breakfast, states slept better last night. Dyspnea, abdominal bloating and gas improved. Denies chest pain or discomfort since admission. No issues with right groin cath site. Awaiting recommendations from Dr. Jordan regarding CABG. Objective Vital Signs, Last 4 Hours Temp Pulse Resp BP Pulse Ox 08/20/16 07:04 98 F 97 16 90/57 97 General: Conversant HEENT: Atraumatic, Normocephaly Cardiac: Reg Rate and Rhythm, Normal S1 and S2 Lungs: Other (Decreased bibasilar) Neuro: Alert and responsive Abdomen: Soft Skin: No rashes noted on visualized skin Musculoskeletal: No Chest Wall Tenderness Extremities: No Edema, Normal Pulses Results 08/19/16 02:01 08/20/16 01:06 Lab Results 08/19/16 08/19/16 08/20/16 09:29 17:43 01:06 APTT 59.3 H D 52.1 H Sodium 139 Potassium 3.9 Chloride 103 Carbon Dioxide 27 BUN 20 Creatinine 0.84 Glucose 128 H Calcium 8.6 08/20/16 08/20/16 01:06 06:43 APTT 80.5 H D 78.6 H Sodium Potassium Chloride Carbon Dioxide BUN Creatinine Glucose Calcium Active Medications Acetaminophen (Tylenol) 650 mg PO Q6HR PRN PRN Reason: Mild Pain Stop: 02/17/17 13:24 Last Admin: 08/19/16 19:23 Dose: 650 mg Albuterol/Ipratropium (Duoneb) 3 ml IH [id number] PRN; Protocol PRN Reason: Shortness Of Breath/Wheezing Stop: 02/18/17 05:45 Last Admin: 08/19/16 05:53 Dose: 3 ml Aspirin (Aspirin) 81 mg PO DAILY ANKUR Stop: 02/18/17 09:01 Last Admin: 08/19/16 11:41 Dose: 81 mg Atorvastatin Calcium (Lipitor) 80 mg PO HS ANKUR Stop: 02/17/17 21:01 Last Admin: 08/19/16 20:16 Dose: 80 mg Carvedilol (Coreg) 3.125 mg PO BIDWM ANKUR PRN Reason: Protocol Stop: 02/18/17 17:01 Last Admin: 08/19/16 16:54 Dose: Not Given Furosemide (Lasix) 40 mg IVP BIDDIURETIC ANKUR Stop: 02/18/17 17:01 Last Admin: 08/19/16 16:49 Dose: 40 mg Heparin Sodium (Porcine) (Heparin) 5,600 unit 70 unit/kg (5600 unit) IVP Q6HR PRN PRN Reason: SEE COMMENTS Stop: 02/17/17 13:28 Heparin Sodium (Porcine) (Heparin) 2,800 unit 35 unit/kg (2800 unit) IVP Q6H PRN PRN Reason: SEE COMMENTS Stop: 02/17/17 13:28 Last Admin: 08/19/16 18:58 Dose: 2,800 unit Heparin Sodium/Dextrose (Heparin 25,000 Unit/500 Ml D5w) 25,000 unit in 500 mls @ 22.226 mls/hr IVC .[id number] ANKUR; 14 UNIT/KG/HR PRN Reason: Protocol Stop: 02/17/17 13:31 Last Titration: 08/20/16 08:01 Dose: 12.91 unit/kg/hr, 20.496 mls/hr Isosorbide Mononitrate (Imdur) 30 mg PO DAILY ANKUR Stop: 02/18/17 09:01 Last Admin: 08/19/16 11:41 Dose: 30 mg Levothyroxine Sodium (Synthroid) 88 mcg PO DAILY ANKUR Stop: 02/18/17 09:01 Last Admin: 08/19/16 11:40 Dose: 88 mcg Lisinopril (Zestril) 2.5 mg PO DAILY ANKUR PRN Reason: Protocol Stop: 02/18/17 09:01 Last Admin: 08/19/16 11:40 Dose: 2.5 mg Lorazepam (Ativan) 0.5 mg PO HS PRN PRN Reason: Insomnia Stop: 02/18/17 11:17 Last Admin: 08/19/16 22:36 Dose: 0.5 mg Nitroglycerin (Nitroglycerin) 0.4 mg SL Q5MIN PRN PRN Reason: Chest Pain Stop: 02/17/17 13:24 Ondansetron HCl (Zofran) 4 mg IVP Q6HR PRN; Protocol PRN Reason: Nausea Stop: 02/18/17 11:55 Last Admin: 08/19/16 12:03 Dose: 4 mg Potassium Chloride (Potassium Chloride) 20 meq PO BID ANKUR Stop: 02/18/17 21:01 Last Admin: 08/19/16 20:16 Dose: 20 meq Simethicone (Gas-X) 80 mg PO TID PRN PRN Reason: Dyspepsia Stop: 02/18/17 16:33 Last Admin: 08/19/16 17:57 Dose: 80 mg - Imaging and Cardiology Echo: report reviewed Cardiac cath: report reviewed Other Results: 12 hour tele: avg HR=90 SR. - EKG Interpretation EKG results cardiology: personally reviewed Consult Discharge Plan - Plan Referrals: Jarvis Isaacs MD [Primary Care Provider] -
[2016-08-20] MEDS ORDERED: Furosemide 40 MG TABLET PO SCH (09:30)
[2016-08-20] MEDS: Isosorbide MONOnitrate (24 HR) 30 MG TAB.ER.24H PO SCH (10:26)
[2016-08-20] MEDS: Aspirin 81 MG TAB.CHEW PO SCH (10:26)
--- NOTE | 2016-08-20 10:27 | Cardiothoracic Progress Note ---
Date of Encounter: 08/20/16 Time of Encounter: 10:25 - Assessment and plan (1) CAD (coronary artery disease) Current Visit: Yes Status: Acute Echocardiogram revealed an ejection fraction of 40%. I recommended a venous duplex as the patient has had multiple deep venous thromboses in her left leg to assess the greater saphenous vein. I also recommended a chest x-ray to assess the pleural effusion seen on echocardiogram. However, the patient's daughter states that she wishes that the patient be transferred to [facility] and does not want any further tests. Qualifiers: Coronary Disease-Associated Artery/Lesion type: [place] artery [place] vs. transplanted heart: [place] heart Associated angina: with unstable angina Qualified Code(s): I25.110 - Atherosclerotic heart disease of [place] coronary artery with unstable angina pectoris - Subjective Interval history: The patient has had no chest pain she does have continued dyspnea. Vital Signs, Last 4 Hours Temp Pulse Resp BP Pulse Ox 08/20/16 07:04 98 F 97 16 90/57 97 Oxgyen Flow Rate Oxygen Flow Rate (LPM) 3 Weight 08/18/16 08/19/16 08/20/16 23:59 23:59 23:59 Weight 79.379 kg 83.8 kg Lungs have rales at the bases. Heart is in a normal sinus rhythm. - Labs 08/19/16 02:01 08/20/16 01:06 Lab Results, Last 24 hours 08/19/16 08/20/16 08/20/16 17:43 01:06 01:06 APTT 52.1 H 80.5 H D Sodium 139 Potassium 3.9 Chloride 103 Carbon Dioxide 27 BUN 20 Creatinine 0.84 Glucose 128 H Calcium 8.6 08/20/16 06:43 APTT 78.6 H Sodium Potassium Chloride Carbon Dioxide BUN Creatinine Glucose Calcium Consult Discharge Plan - Plan Referrals: Jarvis Isaacs MD [Primary Care Provider] -
--- NOTE | 2016-08-20 11:03 | Transfer Summary ---
Date of Encounter: 08/20/16 Time of Encounter: 10:30 Transfer Discharge Sum: Diag - Discharge Diagnosis (1) CAD (coronary artery disease) Status: Acute (2) Systolic CHF Status: Chronic (3) Non-small cell cancer of left lung Status: Resolved (4) DVT (deep venous thrombosis) Status: Chronic Transfer Discharge Sum: Med - Medications Active and Home Medications: Home Medications Cyanocobalamin/FA/Pyridoxine [Folbee Tablet] 1 each PO DAILY 10/04/15 [History Confirmed 08/18/16] Pravastatin Sodium [Pravachol] 40 mg PO HS 10/04/15 [History Confirmed 08/18/16] Warfarin [Coumadin] 5 mg PO MOWEFR 10/04/15 [History Confirmed 08/18/16] Warfarin [Coumadin] 7.5 mg PO SUTUTHSA 10/04/15 [History Confirmed 08/18/16] Isosorbide MONOnitrate (24 HR) [Imdur] 30 mg PO DAILY 08/18/16 [History Confirmed 08/18/16] Levothyroxine [Synthroid] 88 mcg PO QAM 08/18/16 [History Confirmed 08/18/16] Nitroglycerin [Nitrostat] 0.4 mg PO Q5M PRN 08/18/16 [History Confirmed 08/18/16 ] levoFLOXacin [Levofloxacin] 500 mg PO DAILY 08/18/16 [History Confirmed 08/18/16 ] Active Medications Acetaminophen (Tylenol) 650 mg PO Q6HR PRN PRN Reason: Mild Pain Stop: 02/17/17 13:24 Last Admin: 08/19/16 19:23 Dose: 650 mg Albuterol/Ipratropium (Duoneb) 3 ml IH [id number] PRN; Protocol PRN Reason: Shortness Of Breath/Wheezing Stop: 02/18/17 05:45 Last Admin: 08/19/16 05:53 Dose: 3 ml Aspirin (Aspirin) 81 mg PO DAILY ANKUR Stop: 02/18/17 09:01 Last Admin: 08/20/16 10:26 Dose: 81 mg Atorvastatin Calcium (Lipitor) 80 mg PO HS ANKUR Stop: 02/17/17 21:01 Last Admin: 08/19/16 20:16 Dose: 80 mg Carvedilol (Coreg) 3.125 mg PO BIDWM ANKUR PRN Reason: Protocol Stop: 02/18/17 17:01 Last Admin: 08/20/16 10:26 Dose: Not Given Furosemide (Lasix) 40 mg PO DAILY ANKUR Stop: 02/19/17 09:31 Last Admin: 08/20/16 10:34 Dose: 40 mg Heparin Sodium (Porcine) (Heparin) 5,600 unit 70 unit/kg (5600 unit) IVP Q6HR PRN PRN Reason: SEE COMMENTS Stop: 02/17/17 13:28 Heparin Sodium (Porcine) (Heparin) 2,800 unit 35 unit/kg (2800 unit) IVP Q6H PRN PRN Reason: SEE COMMENTS Stop: 02/17/17 13:28 Last Admin: 08/19/16 18:58 Dose: 2,800 unit Heparin Sodium/Dextrose (Heparin 25,000 Unit/500 Ml D5w) 25,000 unit in 500 mls @ 22.226 mls/hr IVC .[id number] ANKUR; 14 UNIT/KG/HR PRN Reason: Protocol Stop: 02/17/17 13:31 Last Titration: 08/20/16 08:01 Dose: 12.91 unit/kg/hr, 20.496 mls/hr Isosorbide Mononitrate (Imdur) 30 mg PO DAILY ANKUR Stop: 02/18/17 09:01 Last Admin: 08/20/16 10:26 Dose: 30 mg Levothyroxine Sodium (Synthroid) 88 mcg PO DAILY ANKUR Stop: 02/18/17 09:01 Last Admin: 08/20/16 10:26 Dose: 88 mcg Lisinopril (Zestril) 2.5 mg PO DAILY ANKUR PRN Reason: Protocol Stop: 02/18/17 09:01 Last Admin: 08/20/16 10:26 Dose: 2.5 mg Lorazepam (Ativan) 0.5 mg PO HS PRN PRN Reason: Insomnia Stop: 02/18/17 11:17 Last Admin: 08/19/16 22:36 Dose: 0.5 mg Nitroglycerin (Nitroglycerin) 0.4 mg SL Q5MIN PRN PRN Reason: Chest Pain Stop: 02/17/17 13:24 Ondansetron HCl (Zofran) 4 mg IVP Q6HR PRN; Protocol PRN Reason: Nausea Stop: 02/18/17 11:55 Last Admin: 08/19/16 12:03 Dose: 4 mg Potassium Chloride (Potassium Chloride) 20 meq PO DAILY ANKUR Stop: 02/19/17 09:23 Last Admin: 08/20/16 10:34 Dose: 20 meq Simethicone (Gas-X) 80 mg PO TID PRN PRN Reason: Dyspepsia Stop: 02/18/17 16:33 Last Admin: 08/19/16 17:57 Dose: 80 mg Transfer Discharge Sum: Data Procedures and tests throughout hospitalization: Pending Orders 08/18/16 13:23 Admit as Inpatient Routine Bed rest w/bathroom privileges [RC] .ONCE Cardiac monitoring [RC] .ONCE Communication order [RC] ONCE Sheath management 1 [RC] ONCE Vital Signs Assessment [RC] Q4H Acetaminophen [Tylenol] 650 mg PO Q6HR PRN Nitroglycerin 0.4 mg SL Q5MIN PRN Resuscitation Status: Active [RES] Routine Advance Diet as Tolerated Routine 08/18/16 13:27 Assess for bleeding [RC] .PER UNIT PROTOCOL Assess neurologic status [RC] q4h Communication order [RC] .PRN Communication order [RC] CONT Notify provider [RC] .PRN Heparin 2,800 unit IVP Q6H PRN Heparin 5,600 unit IVP Q6HR PRN 08/18/16 13:30 Consult to Cardiothoracic Surgery [CONS] Routine Heparin 25,000 UNIT/500 ML D5W 25,000 unit in 500 ml IVC 14 unit/kg/hr 08/18/16 21:00 Atorvastatin [Lipitor] 80 mg PO HS 08/19/16 05:44 Ipratropium/Albuterol Neb [Duoneb] 3 ml IH [id number] PRN 08/19/16 09:00 Aspirin 81 mg PO DAILY Isosorbide MONOnitrate (24 HR) [Imdur] 30 mg PO DAILY Levothyroxine [Synthroid] 88 mcg PO DAILY Lisinopril [Zestril] 2.5 mg PO DAILY 08/19/16 11:15 Intake and Output, Strict [RC] DAILY Measure intake and output [RC] q4h Measure weight [RC] DAILY 08/19/16 11:16 LORazepam [Ativan] 0.5 mg PO HS PRN 08/19/16 11:18 Education, incentive spirometr [RC] .ONCE Incentive Spirometry [RC] .6 TIMES PER HR WHILE AWAKE 08/19/16 11:54 Ondansetron [Zofran] 4 mg IVP Q6HR PRN 08/19/16 16:32 Simethicone [Gas-X] 80 mg PO TID PRN 08/19/16 17:00 Carvedilol [Coreg] 3.125 mg PO BIDWM 08/20/16 09:22 Potassium Chloride 20 meq PO DAILY 08/20/16 09:30 Furosemide [Lasix] 40 mg PO DAILY 08/20/16 Breakfast Cardiac Diet 08/21/16 08:05 PTT [Activated Partial Thrombo Time] [COAG] Routine - Impressions ITS Impressions Chest X-Ray 08/19/16 11:31 IMPRESSION: 1. Increased bilateral pleural effusions and underlying bibasilar opacities likely representing atelectasis. 2. Increased right perihilar opacity suspicious for asymmetric pulmonary edema given findings of interstitial edema. Pneumonia could appear similar. 3. Similar appearance of a partially obscured changes of left perihilar radiation fibrosis. 4. Unchanged mediastinal prominence in the region of the aortic knob and pulmonary trunk most likely related to superimposition of normal structures. D/ / Martinez Villanueva MD / Martinez Villanueva MD Interpreting Provider: Martinez Villanueva MD - Additional Comments LHC disc/images sent. TTE disc/images sent. Transfer Discharge Sum: Prov Date of admission: 08/18/16 15:25 Primary care physician: Jarvis Isaacs MD Admitting clinician: Dania Mix Attending physician on admission: Martinez Flores Consults: 08/18/16 13:30 Consult to Cardiothoracic Surgery [CONS] Routine Consulting Provider: Cardiothoracic Surgery Chari Reason for Consult: 3VCAD, eval for CABG Call Completed: Yes Attending physician on discharge: Martinez Flores Discharging clinician: Tasia Gan Anticipated date of transfer: 08/20/16 Receiving physician/facility: [facility], room [address] Dr. Fitch accepting physician Transfer Discharge Sum: A/P - Plan Cognitive capacity at transfer: Alert and oriented x3. Functional capacity at transfer: independent ambulation Overall status at transfer: patient is not back to baseline Disposition: Transfer Intermediate Care Fac Transfer Discharge Sum: Hosp Hospital course: Ms. Stephen is a 76 year old female with presented to [facility] on 08/18/16 for LHC due to unstable angina and abnormal stress test in the past. 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 Last dose of coumadin 08/15/16--was held in preparation for LHC. Initially seen on 08/16/16 in the outpatient Cardiology clinic by myself due to abnormal ECG at Urgent Care the past weekend. ECG demonstrated new inferolateral ECG changes; given symptoms, she likely had an event last weekend and was therefore recommended to proceed with LHC. At time of visit, she was recommended to go to the ED, however patient refused. LHC demonstrated severe 3v CAD (see full report), EF 35% per LV gram. TTE demonstrated LVEF 40% with SWMA in addition to mild to moderate . She was evaluated on 08/19/[address] Surgery, , who felt patient was a high-risk candidate for CABG due to LV dysfunction and was recommended to have CABG at tertiary care center. Patient and family request transfer to [facility]. Accepting physician, Dr. Fitch with CT Surgery. Hospitalization has been stable, she was started on IV lasix yesterday due to bilateral pleural effusions d/t systolic CHF. Upon exam this morning, dyspnea/ orthopnea have significantly improved. Additional pre-operative testing included bilateral carotid duplex which demonstrated minimal plaque bilaterally (08/19/16). All questions and concerns were addressed with patient and family prior to transfer. She is being transferred to [facility] today in stable condition. Patient/ plan was discussed at length with Dr. Flores who agrees with plan as stated above. CV testing prior to admission: Exercise nuclear stress 04/23/15: exercise ECG demonstrates significant worsening of baseline ST-T changes suggestive of ischemia; mild intensity, reversible mid anteroseptal defect, which could represent a small area of ischemia, gated EF=71%, good exercise capacity Exercise stress 04/08/15: stress ECG demonstrated 1mm ST depressions inferior and laterally and 0.5 -[address] elevation in lead AVR only; T waves invert during recovery then return to baseline at 8 minutes--findings concerning for ischemia , good exercise capacity, achieving 10 METS, normal hemodynamic response to exercised, no chest pain TTE 03/08/15: LVEF 60-65%, mild LVDD, normal RV structure and function, calcified noncoronary cusp of the AV with reduced mobility, mild AR, mild (MG =12 mmHg), normal wall motion. - Time Spent with Patient Total time spent providing and/or coordinating transfer services: 1 hour Greater than 30 minutes Transfer Discharge Sum: Exam - Constitutional Vitals: Vital Signs Temp Pulse Resp BP Pulse Ox 08/20/16 07:04 98 F 97 16 90/57 97 08/20/16 04:10 98.1 F 94 16 91/57 98 08/19/16 20:23 97.5 F L 93 18 110/70 93 08/19/16 17:00 91 20 101/60 99 08/19/16 16:56 96 22 95/61 08/19/16 15:21 96.8 F L 89 16 94/64 96 08/19/16 12:45 97 08/19/16 11:13 97.8 F 106 16 115/77 97 Intake and Output 08/19/16 08/20/16 08/20/16 23:59 07:59 15:59 Intake Total 208 / 208 360 / 360 320 / 320 Output Total 500 / 500 200 / 200 Balance -292 / -292 360 / 360 120 / 120 Intake: IV Fluids 208 / 208 120 / 120 80 / 80 Heparin 25,000 UNIT/500 208 / 208 120 / 120 80 / 80 ML D5W 25,000 unit In 500 ml @ 14 UNIT/KG/HR 22. 226 mls/hr IVC .[id number] ANKUR Rx#:[id number] Oral 0 / 0 240 / 240 240 / 240 Output: Urine 500 / 500 200 / 200 Other: Meal Breakfast Percent of Meal Consumed 50% # Voids 0 0 Weight 83.8 kg Patient Weight 08/20/16 23:59 Weight 83.8 kg General appearance: average body habitus, cooperative, no acute distress - Head Head exam: Present: atraumatic, normal inspection, normocephalic - Eye Eye exam: Present: EOMI, PERRL Pupils: Present: PERRL - ENT ENT exam: Present: normal exam - Neck Neck exam: Present: full ROM - Respiratory Respiratory exam: Present: decreased breath sounds (bibasilar) - Cardiovascular Cardiovascular exam: Present: +S1, +S2, systolic murmur, tachycardia - GI/Abdominal GI/Abdominal exam: Present: normal bowel sounds, soft - Extremities Exam Extremities exam: Present: full ROM Additional comments: LLE discoloration - Neurological Exam Neurological exam: Present: alert, CN II-XII intact, normal gait, oriented X3, no focal deficits, strengths equal and symetr throughout - Skin Skin exam: Present: normal color
[2016-08-20 11:21] VITALS: BP 83/52
--- NOTE | 2016-08-21 09:39 | Electrocardiograph Report ---
[address] [place] [address] Test Date: 2016-08-19 Pat Name: Stella Stephen Department: 111 Room: 2NE19 Gender: F Install [employer] Technician: SIMEON : 1940 Requested By: Dania Mix Order Number: [id number] Reading MD: Reggie Estrada MD Measurements Intervals Paicines Rate: 106 P: 48 AL: 156 QRS: 46 QRSD: 109 T: 6 QT: 345 QTc: 407 Interpretive Statements SINUS TACHYCARDIA ANTEROLATERAL MYOCARDIAL INFARCTION, OF INDETERMINATE AGE Electronically Signed On 08-21-2016 9:38:24 EDT by Reggie Estrada MD
== END 2016-08-20 13:41 | DRG 286 ==
LOC: INVDIALAB 10:14 → 2NENU 10:14
PROVIDERS: ADMIT Internal Medicine Interventional Cardiology; ATTEND Internal Medicine Interventional Cardiology

== ENCOUNTER 2017-03-13 16:17 | Inpatient (IN) ==
--- NOTE | 2017-03-13 19:52 | Emergency Department Note ---
Disposition Clinical Impression: Deep vein thrombosis of lower extremity Qualifiers: Affected thrombotic vein of extremity: unspecified vein of extremity Chronicity : acute Laterality: right Qualified Code(s): I82.401 - Acute embolism and thrombosis of unspecified deep veins of right lower extremity Disposition: Admitted As Inpatient Condition: Fair Referrals: Jarvis Isaacs MD [Primary Care Provider] - Forms: ED Satisfaction Letter Time of Disposition: 20:26 Extremity Problem HPI - General Chief complaint: ED Extremity Problem,Nontraumatic Stated complaint: DVT Right leg Time Seen by Provider: 03/13/17 19:40 Source: patient Mode of arrival: ambulatory Limitations: no limitations Nursing Notes Reviewed: Yes Vital Signs Reviewed: Yes - History of Present Illness HPI Narrative: 77-year-old whose had previous DVTs in her left leg states that she underwent open-heart surgery back in August had stop her Coumadin she then developed a clot in her intestinal tract requiring some resection of bowel due to ischemia she is placed on heparin after that and was on heparin for several weeks in a couple weeks ago she is placed back on her Coumadin. Last INR last week was in the 7 range that she developed right leg pain and had a Doppler done today she was told she has new acute DVT in the right leg. Pt Subjective Complaint: extremity pain, extremity swelling Onset (ago): day(s) Consistency: constant Injury Location: right, lower extremity Pain Scale: 5 Quality: aching Radiation: none Improves with: nothing Worsens with: weight bearing Associated symptoms: Reports: denies other symptoms. Denies: chest pain - Related Data Home Medications Medication Instructions Recorded Confirmed Cyanocobalamin/FA/Pyridoxine 1 each PO DAILY 10/04/15 08/18/16 [Folbee Tablet] Pravastatin Sodium [Pravachol] 40 mg PO HS 10/04/15 08/18/16 Warfarin [Coumadin] 5 mg PO MOWEFR 10/04/15 08/18/16 Warfarin [Coumadin] 7.5 mg PO SUTUTHSA 10/04/15 08/18/16 Isosorbide MONOnitrate (24 HR) 30 mg PO DAILY 08/18/16 08/18/16 [Imdur] Levothyroxine [Synthroid] 88 mcg PO QAM 08/18/16 08/18/16 Nitroglycerin [Nitrostat] 0.4 mg PO Q5M PRN 08/18/16 08/18/16 levoFLOXacin [Levofloxacin] 500 mg PO DAILY 08/18/16 08/18/16 Allergies Allergy/AdvReac Type Severity Reaction Status Date / Time rofecoxib [From Vioxx] Allergy Palpitation Verified 08/18/16 10:36 s Constitutional: Denies: fever, chills, weakness, weight change Eyes: Denies: eye pain, eye discharge, vision change ENT ED: Denies: ear pain, throat pain, dental pain, hearing loss, epistaxis, congestion, dysphagia Cardiovascular: Denies: chest pain, palpitations, dyspnea on exertion, edema, syncope Respiratory: Denies: cough, dyspnea, wheezes, hemoptysis, stridor Gastrointestinal: Denies: abdominal pain, nausea, vomiting, diarrhea, constipation, hematemesis, melena, hematochezia Genitourinary: Denies: dysuria, frequency, hematuria, discharge Musculoskeletal: Reports: arthralgia. Denies: back pain, neck pain, myalgia Integumentary: Denies: rash, abrasion, lesions Neurological: Denies: headache, weakness, numbness, paresthesias, confusion, abnormal gait, vertigo Psychiatric: Denies: anxiety, depression, suicidal thoughts, homicidal thoughts , auditory hallucinations, visual hallucinations Endocrine: Denies: fatigue Hematological/Lymphatic: Denies: easy bleeding, easy bruising Allergic/Immunologic: Denies: facial swelling, urticaria Past Medical History - Past Medical History Medical history: Reports: cancer, coronary artery disease, DVT, hyperlipidemia, pulmonary embolus, venous stasis, other Surgical history: Reports: hysterectomy Psychiatric history: Reports: no psych history - Social History Smoking Status: Former smoker Smokeless Tobacco Status: No Alcohol use: Reports: none Drug use: Reports: none Physical Exam - General Limitations: no limitations General appearance: alert, in no apparent distress - Head Head exam: atraumatic, normocephalic, normal inspection - Eye Eye exam: Present: normal appearance, PERRL, EOMI - ENT ENT exam: normal exam, normal oropharynx, mucous membranes moist - Neck Neck exam: Present: normal inspection, full ROM, trachea midline - Chest Chest inspection: Present: normal inspection, symmetric chest wall rise - Respiratory Respiratory exam: Present: normal lung sounds bilaterally - Cardiovascular Cardiovascular exam: Present: regular rate, normal rhythm, normal heart sounds - Abdominal Exam Abdominal exam: Present: soft, Non-Tender. Absent: tenderness, distention, guarding, rebound, rigidity - Expanded Lower Extremity Exam Upper leg exam: Present: tenderness (Right upper leg), swelling Lower leg exam: Present: normal inspection, full ROM Neurovascular/Tendon exam: Absent: motor deficit, sensory deficit, tendon deficit Gait: observed and normal - Back Exam Back exam: Present: normal inspection, full ROM. Absent: tenderness - Neurological Exam Neurological exam: Present: alert, oriented X3 - Psychiatric Psychiatric exam: Present: normal affect, normal mood - Skin Skin exam: Present: warm, dry, intact, normal color Course - Reevaluation(s) Reevaluation #1: This is a 77-year-old whose had previous blood clots in her left leg. She had her Coumadin stopped for open heart surgery in August and then had a and ischemic bowel surgery following that. She was placed on heparin as an outpatient and then a couple of weeks ago was started on Coumadin. He developed increasing right leg pain and was found have a DVT. We will place her on heparin and admit her for further evaluation by hematology. Time: 20:24 - Consultations Consultation #1: Discussed with , heparinize and he will see in consult Time: 20:24 Consultation #2: Discussed with Dr. Rose, admit. Time: 20:43 Vital Signs Temperature 98.2 F 03/13/17 16:18 Pulse Rate 103 03/13/17 16:18 Respiratory Rate 18 03/13/17 16:18 Blood Pressure 120/66 03/13/17 16:18 O2 Sat by Pulse Oximetry 95 03/13/17 16:18 Temperature 98.2 F 03/13/17 16:18 Pulse Rate 103 03/13/17 16:18 Respiratory Rate 18 03/13/17 16:18 Blood Pressure 120/66 03/13/17 16:18 O2 Sat by Pulse Oximetry 95 03/13/17 16:18 Oxygen Delivery Oxygen Delivery Room Air Extremity Problem, Nontraumati - Lab Data Result diagrams: 03/13/17 20:02 03/13/17 20:02 Lab Results 03/13/17 03/13/17 03/13/17 Range/Units 20:02 20:02 20:02 WBC 10.1 (4.3-11.1) K/mcL RBC 3.01 L (3.82-4.97) M/mcL Hgb 9.3 L (11.5-15.4) g/dL Hct 29.8 L (35.3-44.9) % MCV 99.0 (83.0-100.0) fL MCH 30.9 (28.0-33.3) pg MCHC 31.2 L (31.6-35.5) g/dL RDW 14.1 (11.5-14.5) % Plt Count 251 (140-400) K/mcL MPV 9.3 L (9.4-12.4) fL Immature Gran % 0.7 (0-4) % Seg Neutrophils % 78.5 % Lymphocytes % 10.8 % Monocytes % 8.4 % Eosinophils % 1.3 % Basophils % 0.3 % Neutrophils # 8.0 (1.6-8.9) K/mcL Lymphocytes # 1.1 (0.6-4.6) K/mcL Monocytes # 0.9 (0.0-1.3) K/mcL Eosinophils # 0.1 (0.0-0.6) K/mcL Basophils # 0.0 (0.0-0.2) K/mcL PT 20.4 H (9.4-12.1) Seconds INR 1.9 APTT 37.4 H (26.0-36.0) Seconds Sodium 141 (136-145) mEq/L Potassium 4.0 (3.5-5.1) mEq/L Chloride 104 (98-107) mEq/L Carbon Dioxide 29 (23-29) mEq/L BUN 29 H (8-23) mg/dL Creatinine 1.61 H (0.60-1.20) mg/dL Est GFR ( Amer) 38 L (> 60) Est GFR (Non-Af Amer) 31 L (> 60) BUN/Creatinine Ratio 18 (6-26) Glucose 152 H (70-105) mg/dL Calculated Osmolality 301 H (280-300) Calcium 9.5 (8.6-10.3) mg/dL
[2017-03-13 20:09] LABS: Hematocrit 29.8 % (35.3-44.9); Hemoglobin 9.3 g/dL (11.5-15.4); Immature Granulocytes % 0.7 % (0-4); Lymphocytes % 10.8 %; Mean Corpuscular HGB Conc 31.2 g/dL (31.6-35.5); Mean Corpuscular Hemoglobin 30.9 pg (28.0-33.3); Mean Platelet Volume 9.3 fL (9.4-12.4); Platelet Count 251 K/mcL (140-400); Red Blood Count 3.01 M/mcL (3.82-4.97); Red Cell Distribution Width 14.1 % (11.5-14.5); Segmented Neutrophils % 78.5 %
[2017-03-13 20:10] LABS: Basophils % 0.3 %; Eosinophils # 0.1 K/mcL (0.0-0.6); Eosinophils % 1.3 %; Lymphocytes # 1.1 K/mcL (0.6-4.6); Monocytes # 0.9 K/mcL (0.0-1.3); Monocytes % 8.4 %
[2017-03-13 20:15] LABS: INR 1.9; Prothrombin Time 20.4 Seconds (9.4-12.1)
[2017-03-13 20:17] LABS: Activated Partial Thrombo Time 37.4 Seconds (26.0-36.0)
[2017-03-13] MEDS ORDERED: *HR* Heparin 5,000 UNIT/ML VIAL IVP PRN ×2 (20:21)
[2017-03-13] MEDS ORDERED: *HR* Heparin 5,000 UNIT/ML VIAL IVP ONE (20:21)
[2017-03-13 20:23] LABS: Calcium 9.5 mg/dL (8.6-10.3)
[2017-03-13] MEDS: Heparin 25,000 UNIT/500 ML D5W 25,000 UNIT/500 ML BAG IVC SCH (21:08)
[2017-03-14] MEDS ORDERED: Acetaminophen 325 MG TABLET PO PRN (03:38)
[2017-03-14] MEDS ORDERED: Nitroglycerin 0.4 MG TAB.SUBL SL PRN (03:41)
[2017-03-14 04:26] LABS: Activated Partial Thrombo Time 129.6 Seconds (26.0-36.0)
[2017-03-14 04:30] LABS: Heparin anti-factor XA UFH 0.43 IU/mL (0.30-0.70)
[2017-03-14 07:14] LABS: Hematocrit 25.9 % (35.3-44.9); Hemoglobin 7.9 g/dL (11.5-15.4); Mean Corpuscular HGB Conc 30.5 g/dL (31.6-35.5); Mean Corpuscular Hemoglobin 30.3 pg (28.0-33.3); Mean Corpuscular Volume 99.2 fL (83.0-100.0); Mean Platelet Volume 9.6 fL (9.4-12.4); Platelet Count 254 K/mcL (140-400); Red Blood Count 2.61 M/mcL (3.82-4.97); Red Cell Distribution Width 14.2 % (11.5-14.5)
--- NOTE | 2017-03-14 07:20 | Internal Med History&Physical ---
Date of Encounter: 03/14/17 Time of Encounter: 03:00 Assessment and Plan (1) Non-small cell cancer of left lung Current visit: No Status: Resolved s/p chemo and radiation, stable, pt is following with oncologist as outpatient. (2) CAD (coronary artery disease) Current visit: No Status: Acute No chest pain. S/P CABG, continue home medications Qualifiers: Coronary Disease-Associated Artery/Lesion type: [place] artery [place] vs. transplanted heart: [place] heart Associated angina: with unstable angina Qualified Code(s): I25.110 - Atherosclerotic heart disease of [place] coronary artery with unstable angina pectoris (3) DVT (deep venous thrombosis) Current visit: No Status: Chronic Patient did develop DVT although she is on Coumadin. Place patient on heparin drip. Oncology consult was called by ER. Will see patient today. Qualifiers: DVT location: lower extremity Affected thrombotic vein of extremity: unspecified vein of extremity Chronicity: chronic Laterality: left Qualified Code(s): I82.502 - Chronic embolism and thrombosis of unspecified deep veins of left lower extremity Internal Medicine - H&P: HPI Chief complaint: Right leg swelling and pain Admitted From: Home Plans for Post Hospital Care: Home History of present illness: Ms. Stephen is a 77 year old female with history of CAD S/P CABG, non-small cell lung cancer s/p chemotherapy and radiation therapy, history of DVT on Coumadin, called by primary care doctor because of newly developed DVT on right leg. Patient complaining of right leg swelling and pain on right thigh for 4-5 days. She has ankle swelling on the right as well. Patient has recent CABG surgery and end up with acute bowel ischemia and bowel resection. Patient just discharged to home two weeks ago. Patient denies shortness of breath or chest pain. Patient denies family history of DVT/PE. Past Med Surg Social Fam HX - Past Medical History Medical history: cancer, coronary artery disease, DVT, hyperlipidemia, pulmonary embolus, venous stasis, other Psychiatric history: no psych history - Past Surgical History Surgical History: hysterectomy - Social History Smoking Status: Former smoker Smokeless Tobacco Status: No Alcohol use: none Drug use: none - Family History Mother Hx Family Cancer: Yes (ovarian) Internal Medicine - H&P: Meds Warfarin [Coumadin] 0 mg PO DAILY 10/04/15 [History] Isosorbide MONOnitrate (24 HR) [Imdur] 30 mg PO DAILY 08/18/16 [History] Levothyroxine [Synthroid] 88 mcg PO QAM 08/18/16 [History] RX: Nitroglycerin [Nitrostat] 0.4 mg PO Q5M PRN 08/18/16 [History] Amiodarone [Cordarone] 200 mg PO DAILY 03/13/17 [History] Atorvastatin [Lipitor] 40 mg PO HS 03/13/17 [History] Famotidine [Heartburn Prevention] 20 mg PO HS 03/13/17 [History] Furosemide [Lasix] 20 mg PO DAILY 03/13/17 [History] RX: Metoclopramide HCl 2.5 mg PO TID 03/13/17 [History] RX: Midodrine [ProAmatine] 5 mg PO TID 03/13/17 [History] 3 Allergy/AdvReac Type Severity Reaction Status Date / Time rofecoxib [From Vioxx] Allergy Palpitation Verified 08/18/16 10:36 s All Systems PM: A 10-system review of systems was performed and is negative for pertinent findings except as documented above in the HPI. - Constitutional Vitals: Temp Pulse Resp BP Pulse Ox 99.0 F 84 16 93/53 94 03/14/17 02:32 03/14/17 02:32 03/14/17 02:32 03/14/17 02:32 03/14/17 02:32 - Head Head exam: Present: atraumatic, normocephalic - Eye Eye exam: Present: PERRL, conjuntiva pink, sclera anicteric Pupils: Present: PERRL - Neck Neck exam general surgery: Present: supple, trachea midline. Absent: lymphadenopathy - Respiratory Respiratory exam: Present: CTAB. Absent: accessory muscle use, rales, rhonchi, wheezes - Cardiovascular Cardiovascular exam: Present: RRR, +S1, +S2. Absent: diastolic murmur, gallop, rubs, systolic murmur - GI/Abdominal GI/Abdominal exam: Present: normal bowel sounds, soft, no peritoneal signs. Absent: distended, tenderness - Extremities Exam Extremities exam: Present: tenderness (on right thigh), warm, radial pulses palpable and symmetrical. Absent: calf tenderness, cyanotic, pedal edema - Neurological Exam Neurological exam: Present: CN II-XII intact, oriented X3, no focal deficits. Absent: pronater drift, facial droop, speech deficit - Skin Skin exam: Present: dry, intact Internal Med - H&P Results - Labs CBC & Chem 7: 03/13/17 20:02 03/13/17 20:02
[2017-03-14 07:36] LABS: Calcium 8.9 mg/dL (8.6-10.3); Potassium 3.8 mEq/L (3.5-5.1)
[2017-03-14] MEDS ORDERED: 0.9 % Sodium Chloride 250 ML ONE (08:01)
--- NOTE | 2017-03-14 08:03 | Internal Med Progress Note ---
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) Patient is taking Warfarin at home but checked INR last Sunday and was 7.1 and held since then (pain was starting at that time) Pain and swelling have improved today Plan: Heparin gtt Monitor for acute bleeds Heme/onc consulted for further evaluation with h/o lung CA Qualifiers: DVT location: lower extremity Affected thrombotic vein of extremity: unspecified vein of extremity Chronicity: acute Laterality: right Qualified Code(s): I82.401 - Acute embolism and thrombosis of unspecified deep veins of right lower extremity (2) SUE (acute kidney injury) Current Visit: Yes Status: Acute Assessment and plan: Cr 1.61 -> 1.51 Baseline less than 1 Gentle IVF for now with CHF Continue to monitor (3) Non-small cell cancer of left lung Current Visit: No Status: Resolved Assessment and plan: History of non-small cell lung cancer Diagnosed back in 2007 and underwent chemotherapy and radiation at that time Surveillance imaging annually since then without complication New DVT present while on Warfarin and will consult heme/onc for further evaluation (4) CAD (coronary artery disease) Current Visit: No Status: Acute Assessment and plan: No acute chest pain or EKG ischemic changes S/p CABG back in August 2016 Continue telemetry Continue home meds Qualifiers: Coronary Disease-Associated Artery/Lesion type: [place] artery [place] vs. transplanted heart: [place] heart Associated angina: with unstable angina Qualified Code(s): I25.110 - Atherosclerotic heart disease of [place] coronary artery with unstable angina pectoris (5) Systolic CHF Current Visit: No Status: Chronic Assessment and plan: ECHO 08/19/2016: - EF 40% - Mild-moderate LV systolic dysfunction - Mild-moderate , mild AR, mild MR No acute SOB, PND orthopnea or worsening LE edema Qualifiers: Congestive heart failure chronicity: chronic Qualified Code(s): I50.22 - Chronic systolic (congestive) heart failure (6) Anemia Current Visit: Yes Status: Acute Assessment and plan: Hgb down 9.3 -> 7.9 Hemodynamically stable No hemoptysis, hematochezia or melena Check Hemoccult Qualifiers: Anemia type: unspecified type Qualified Code(s): D64.9 - Anemia, unspecified - Subjective Interval history: Admitted for right leg swelling with DVT present while on Coumadin therapy Resting comfortably in bed this morning Pain and swelling have decreased in here right leg No new complaints No overnight events Denies any CP, ARCEO, fever, chills, SOB, palpitations, abdominal pain or GI issues - Constitutional Vitals: Temp Pulse Resp BP Pulse Ox 98.4 F 82 16 98/62 97 03/14/17 07:23 03/14/17 07:23 03/14/17 07:23 03/14/17 07:23 03/14/17 07:23 General appearance: Present: cooperative, A&O X 3, no acute distress, answers questions appropriately - Head Head exam: Present: atraumatic, normocephalic - Eye Eye exam: Present: EOMI, normal appearance, conjuntiva pink, sclera anicteric - ENT ENT exam: Present: mucous membranes moist - Neck Neck exam general surgery: Present: supple, trachea midline - Respiratory Respiratory exam: Present: CTAB. Absent: rales, respiratory distress, rhonchi, wheezes - Cardiovascular Cardiovascular exam: Present: RRR, +S1, +S2 Additional comments: sternal scar present - GI/Abdominal GI/Abdominal exam: Present: normal bowel sounds, soft. Absent: tenderness - Extremities Exam Extremities exam: Present: pedal edema (trace bilateral), warm. Absent: tenderness - Neurological Exam Neurological exam: Present: alert, oriented X3, no focal deficits - Psychiatric Psychiatric exam: Present: normal affect, normal mood - Skin Skin exam: Present: dry, normal color, warm. Absent: diaphoretic Internal Medicine: Result - Labs CBC & Chem 7: 03/14/17 06:50 03/14/17 06:50 Labs: Short CBC 03/14/17 Range/Units 06:50 WBC 7.5 (4.3-11.1) K/mcL Hgb 7.9 L (11.5-15.4) g/dL Hct 25.9 L (35.3-44.9) % Plt Count 254 (140-400) K/mcL BMP 03/14/17 06:50 Sodium 141 Potassium 3.8 Chloride 107 Carbon Dioxide 31 H BUN 29 H Creatinine 1.51 H Glucose 113 H Calcium 8.9 - ABG Interpretation ABG results: PT/INR, D-dimer PT 20.4 Seconds (9.4-12.1) H 03/13/17 20:02 Consult Discharge Plan - Plan Referrals: Jarvis Isaacs MD [Primary Care Provider] - <Trino Silva - Last Filed: 03/14/17 18:41> Date of Encounter: 03/14/17 - Constitutional Vitals: Temp Pulse Resp BP Pulse Ox 97.5 F L 75 16 101/64 97 03/14/17 11:34 03/14/17 14:39 03/14/17 11:34 03/14/17 14:39 03/14/17 11:34 Internal Medicine: Result - Labs CBC & Chem 7: 03/14/17 06:50 03/14/17 06:50 Labs: Short CBC 03/14/17 Range/Units 06:50 WBC 7.5 (4.3-11.1) K/mcL Hgb 7.9 L (11.5-15.4) g/dL Hct 25.9 L (35.3-44.9) % Plt Count 254 (140-400) K/mcL [facility] 03/14/17 06:50 Sodium 141 Potassium 3.8 Chloride 107 Carbon Dioxide 31 H BUN 29 H Creatinine 1.51 H Glucose 113 H Calcium 8.9 - ABG Interpretation ABG results: PT/INR, D-dimer PT 20.4 Seconds (9.4-12.1) H 03/13/17 20:02 - Attending Attestation I examined this patient and my medical decision-making was reviewed with the Resident Physician on 03/14/17. I agree with the documented findings, disposition and treatment plan as described except to the extent set forth below. Ms Stephen was admitted earlier today for acute RLE DVT. Exam Alert. Comfortable Mucus membranes dry Agree with assessment and plan as above.
[2017-03-14] MEDS: *HR* Amiodarone 200 MG TABLET PO SCH (10:26)
[2017-03-14 13:44] LABS: Thyroid Stimulating Hormone 7.627 mcIU/mL (0.340-5.600)
[2017-03-14] MEDS: Isosorbide MONOnitrate (24 HR) 30 MG TAB.ER.24H PO SCH (14:50)
[2017-03-14] MEDS: Furosemide 20 MG TABLET PO SCH (14:50)
--- NOTE | 2017-03-14 15:33 | Oncology Inp Consult Note ---
<Breanna Cárdenas S - Last Filed: 03/14/17 17:22> Date of Encounter: 03/14/17 - Data of Consult Requesting Physician: Trino Silva DO Primary Care Provider: Jarvis Isaacs MD - Consult Narrative History of present illness: Ms. Stephen is a 77 year old female Medications and Allergies Warfarin [Coumadin] 0 mg PO DAILY 10/04/15 [History] Isosorbide MONOnitrate (24 HR) [Imdur] 30 mg PO DAILY 08/18/16 [History] Levothyroxine [Synthroid] 88 mcg PO QAM 08/18/16 [History] Nitroglycerin [Nitrostat] 0.4 mg PO Q5M PRN 08/18/16 [History] Amiodarone [Cordarone] 200 mg PO DAILY 03/13/17 [History] Atorvastatin [Lipitor] 40 mg PO HS 03/13/17 [History] Famotidine [Heartburn Prevention] 20 mg PO HS 03/13/17 [History] Furosemide [Lasix] 20 mg PO DAILY 03/13/17 [History] Metoclopramide HCl 2.5 mg PO TID 03/13/17 [History] Midodrine [ProAmatine] 5 mg PO TID 03/13/17 [History] 3 Allergy/AdvReac Type Severity Reaction Status Date / Time rofecoxib [From Vioxx] Allergy Palpitation Verified 08/18/16 10:36 s Oncology - Exam - Constitutional Vitals: Temp Pulse Resp BP Pulse Ox 97.5 F L 75 16 101/64 97 03/14/17 11:34 03/14/17 14:39 03/14/17 11:34 03/14/17 14:39 03/14/17 11:34 Oncology - Results Labs: Short CBC 03/14/17 Range/Units 06:50 WBC 7.5 (4.3-11.1) K/mcL Hgb 7.9 L (11.5-15.4) g/dL Hct 25.9 L (35.3-44.9) % Plt Count 254 (140-400) K/mcL BMP 03/14/17 06:50 Sodium 141 Potassium 3.8 Chloride 107 Carbon Dioxide 31 H BUN 29 H Creatinine 1.51 H Glucose 113 H Calcium 8.9 Consult Discharge Plan - Plan Referrals: Jarvis Isaacs MD [Primary Care Provider] - - Attending Attestation 1. Acute right lower extremity DVT Discussed in detail with the patient. She was started back on Coumadin after 2016. She did not have enough time on Coumadin before she noticed new right lower extremity DVT Chronic left lower extremity DVTs Had a long discussion about newer anticoagulant. She does have chronic kidney disease stage III with creatinine 1.5. Her creatinine was normal in the past with hydration creatinine should improve Review of literature suggest creatinine 1.5 or below Elequis 5 mg by mouth twice a day is recommended. If creatinine stays above 1.5 reduced dose to 2.5 mg by mouth twice a day. This is safer than some of the newer anticoagulants and terms of lower risk of bleeding Discussed with her in detail. She had a CABG in August 2016. She is not sure if she has a valvular heart disease and will have cardiology give us an opinion on that as Elequis may not be indicated if she has a valvular heart disease Otherwise she is willing to try Elequis on discharge 2. Lung cancer treated in 2007. 3. Anemia. Anemia workup showed iron B12 folate normal. TSH elevated at 7 and she is on Synthroid Anticoagulation may be playing a role in her anemia. 4. CHF history and coronary artery disease status post CABG August 2016 as mentioned I also had a long discussion with her. We will like to avoid IVC filter if possible. She needs lifelong anticoagulation. She understand with any anticoagulation the main risk is bleeding. She is already anemic. May need colonoscopy in the future <Paris Palacios - Last Filed: 03/14/17 17:43> Date of Encounter: 03/14/17 Time of Encounter: 15:33 Assessment and Plan (1) DVT (deep venous thrombosis) Status: Acute Assessment and plan: Discussed doppler findings consistent with RLE acute DVT and LLE chronic thrombosis. Discussed options for anticoagulation on discharge. It appears that she was on coumadin a few weeks prior to this incident and did not acheive therapeutic INR during this time so it cannot be clearly established as to whether she failed coumadin or acute DVT is a result of transition between heparin/coumadin. She will require lifelong anticoagulation, not interested in IVC filter at this juncture. History of NSCLC in remission. Previous patient of Dr. Hernandez with no recent f/u. She denies chest pain or SOB, no hypoxia noted. Given current SUE would not recommend CT with contrast at this time until kidney function improves. Will need f/u as outpatient with hem/onc. Consult cardiology, patient reports that she is unsure if she has valvular heart disease. Pending cardiology recommendation regarding valvular heart disease, she is agreeable to Eliquis (at renal dosing if creatinine stays greater than 1.5). Anemia lab work up initiated. Denies s/s bleeding. May need colonoscopy in future. Qualifiers: DVT location: lower extremity Affected thrombotic vein of extremity: unspecified vein of extremity Chronicity: acute Laterality: right Qualified Code(s): I82.401 - Acute embolism and thrombosis of unspecified deep veins of right lower extremity - Data of Consult Requesting Physician: Trino Silva DO Primary Care Provider: Jarvis Isaacs MD - Consult Narrative History of present illness: Ms. Stephen is a 77 year old female with past medical history of NSCLC, DVT, PE, CAD s/p CABG August 2016. Prior to August she reports being on coumadin x9 years for LLE DVT/PE in the setting of malignancy. Diagnosed with NSCLC in 2007 s/p chemotherapy and radiation, currently in remission although she has not followed up with oncology in quite some time. She is unable to provide the last time she followed up, states she last saw Dr. Hernandez, no records in [facility] meaning f/u was prior to October 2014. Prior to CABG August 2016, coumadin was stopped and she subsequently developed s cloy in her intestinal tract causing ischemia and resulting in bowel resection. Since that time she has been anticoagulated on SQ heparin until a few weeks ago starting coumadin. During the past few weeks she has had difficulty achieving therapeutic INR until coumadin was ultimately stopped for INR of 7 last Sunday. During this time she developed RLE pain, erythema and swelling, Doppler revealed right iliac through tibial vein demonstrates acute thrombosis and left common femoral vein demonstrates chronic thrombosis. Heparin gtt initiated and hem/onc consulted for further anticoagulation recommendation. Past Med Surg Social Fam HX - Past Medical History Medical history: cancer, coronary artery disease, DVT, hyperlipidemia, pulmonary embolus, venous stasis, other Psychiatric history: no psych history - Past Surgical History Surgical History: hysterectomy - Social History Smoking Status: Former smoker Smokeless Tobacco Status: No Alcohol use: none Drug use: none - Family History Mother Hx Family Cancer: Yes (ovarian) Constitutional: Absent: fatigue, fever(s), weakness, weight loss Eyes: Absent: change in vision Nose, mouth and throat: Absent: abnormal hearing Cardiovascular: Absent: chest pain, irregular heart rhythm, palpitations Respiratory: Present: dyspnea on exertion. Absent: cough Gastrointestinal: Absent: abdominal pain, diarrhea, hematochezia, nausea, vomiting Genitourinary: Absent: dysuria, hematuria Musculoskeletal: Absent: numbness, tingling Integumentary: Absent: skin ulcer, wounds Neurological: Absent: focal weakness Hematologic/Lymphatic: Absent: easy bleeding, lymphadenopathy Oncology - Exam - Constitutional Vitals: Temp Pulse Resp BP Pulse Ox 97.5 F L 75 16 101/64 97 03/14/17 11:34 03/14/17 14:39 03/14/17 11:34 03/14/17 14:39 03/14/17 11:34 General appearance: cooperative, no acute distress, no febrile - Head Head exam: Present: normal inspection - ENT ENT exam: Present: mucous membranes moist - Neck Neck exam: Absent: lymphadenopathy, tenderness - Respiratory Respiratory exam: Present: decreased breath sounds, CTAB. Absent: respiratory distress - Cardiovascular Cardiovascular exam: Present: RRR, +S1, +S2 - GI/Abdominal GI/Abdominal exam: Present: normal bowel sounds, soft. Absent: guarding, tenderness - Extremities Exam Extremities exam: Present: pedal edema Additional comments: RLE non pitting edema, skin changes noted to LLE from chronic DVT - Neurological Exam Neurological exam: Present: alert, oriented X3, strengths equal and symetr throughout - Skin Skin exam: Present: pallor Oncology - Results Labs: Short CBC 03/14/17 Range/Units 06:50 WBC 7.5 (4.3-11.1) K/mcL Hgb 7.9 L (11.5-15.4) g/dL Hct 25.9 L (35.3-44.9) % Plt Count 254 (140-400) K/mcL BMP 03/14/17 06:50 Sodium 141 Potassium 3.8 Chloride 107 Carbon Dioxide 31 H BUN 29 H Creatinine 1.51 H Glucose 113 H Calcium 8.9
[2017-03-14] MEDS: 0.9 % Sodium Chloride 1,000 ML IVC SCH (16:59)
[2017-03-14] MEDS ORDERED: Famotidine 20 MG TABLET PO SCH (21:00)
[2017-03-15 00:59] LABS: Basophils % 0.3 %; Eosinophils # 0.1 K/mcL (0.0-0.6); Eosinophils % 1.8 %; Hematocrit 24.3 % (35.3-44.9); Hemoglobin 7.7 g/dL (11.5-15.4); Immature Granulocytes % 0.6 % (0-4); Lymphocytes # 1.2 K/mcL (0.6-4.6); Mean Corpuscular HGB Conc 31.7 g/dL (31.6-35.5); Mean Corpuscular Hemoglobin 30.7 pg (28.0-33.3); Mean Corpuscular Volume 96.8 fL (83.0-100.0); Mean Platelet Volume 9.6 fL (9.4-12.4); Monocytes # 0.9 K/mcL (0.0-1.3); Monocytes % 10.9 %; Neutrophils # 5.5 K/mcL (1.6-8.9); Platelet Count 234 K/mcL (140-400); Red Blood Count 2.51 M/mcL (3.82-4.97); Red Cell Distribution Width 14.2 % (11.5-14.5); Segmented Neutrophils % 70.4 %
[2017-03-15 01:04] LABS: INR 1.8; Prothrombin Time 19.6 Seconds (9.4-12.1)
[2017-03-15 01:20] LABS: Calcium 8.7 mg/dL (8.6-10.3); Potassium 3.9 mEq/L (3.5-5.1)
[2017-03-15] MEDS: 0.9 % Sodium Chloride 1,000 ML IVC SCH (04:08)
[2017-03-15] MEDS: Heparin 25,000 UNIT/500 ML D5W 25,000 UNIT/500 ML BAG IVC SCH (04:09)
[2017-03-15] MEDS: *HR* Amiodarone 200 MG TABLET PO SCH (08:18)
[2017-03-15] MEDS: Furosemide 20 MG TABLET PO SCH (08:18)
[2017-03-15] MEDS: Isosorbide MONOnitrate (24 HR) 30 MG TAB.ER.24H PO SCH (08:18)
--- NOTE | 2017-03-15 08:23 | Discharge Summary ---
<Sanjiv Edwards - Last Filed: 03/15/17 13:31> Date of Encounter: 03/15/17 Time of Encounter: 08:23 - Discharge Diagnosis (1) DVT (deep venous thrombosis) Priority: Primary Status: Acute (2) SUE (acute kidney injury) Priority: Primary Status: Acute (3) Non-small cell cancer of left lung Priority: Secondary Status: Resolved (4) CAD (coronary artery disease) Priority: Secondary Status: Acute (5) Systolic CHF Priority: Secondary Status: Chronic (6) Anemia Priority: Secondary Status: Acute - Discharge Medications Prescriptions: Apixaban [Eliquis] 5 mg PO BID #60 tablet Levothyroxine [Synthroid] 100 mcg PO 0630 #30 tablet Home Medications: Isosorbide MONOnitrate (24 HR) [Imdur] 30 mg PO DAILY 08/18/16 [History] Nitroglycerin [Nitrostat] 0.4 mg PO Q5M PRN 08/18/16 [History] Amiodarone [Cordarone] 200 mg PO DAILY 03/13/17 [History] Atorvastatin [Lipitor] 40 mg PO HS 03/13/17 [History] Famotidine [Heartburn Prevention] 20 mg PO HS 03/13/17 [History] Furosemide [Lasix] 20 mg PO DAILY 03/13/17 [History] Metoclopramide HCl 2.5 mg PO TID 03/13/17 [History] Midodrine [ProAmatine] 5 mg PO TID 03/13/17 [History] Apixaban [Eliquis] 5 mg PO BID #60 tablet 03/15/17 [Rx] Levothyroxine [Synthroid] 100 mcg PO 0630 #30 tablet 03/15/17 [Rx] Allergies/Adverse Reactions: 3 Allergy/AdvReac Type Severity Reaction Status Date / Time rofecoxib [From Vioxx] Allergy Palpitation Verified 08/18/16 10:36 s Date of admission: 03/14/17 03:38 Primary care physician: Jarvis Isaacs MD Discharging clinician: Trino Silva Anticipated date of discharge: 03/15/17 - Patient Status Disposition: Home Health Service Condition: Good Functional capacity at discharge: independent ambulation Overall status at discharge: patient is back to baseline - Discharge Instructions Instructions: Levothyroxine (By mouth), Apixaban (By mouth), Deep Venous Thrombosis (DC) Follow Up With: Jarvis Isaacs MD [Primary Care Provider] - 03/20/17 10:00 am - Diet and Activity Activity: as per physical therapy Diet: low salt diet Hospital course: Ms. Stephen is a 77 year old female with past medical history of CAD S/P CABG, non-small cell lung cancer s/p chemotherapy and radiation therapy, history of DVT on Coumadin (started after 2016), called by primary care doctor because of newly developed DVT on right leg. Patient complaining of right leg swelling and pain on right thigh for 4-5 days. She has ankle swelling on the right as well. Patient has recent CABG surgery and end up with acute bowel ischemia and bowel resection back in August 2016 resulting in rehab placement in [place] for 6 months. Patient just discharged to home two weeks ago. Patient denies shortness of breath or chest pain. Patient denies family history of DVT/PE. She was subsequently admitted to [facility] for further intervention. Patient was started on Heparin gtt and IVF d/t SUE with Cr 1.61. Cr dropped to 1.48 and TSH was found to be 7.627 while taking Synthroid 88mcg daily. Increased her dose to 100mg. Hemo/onc was consulted and recommended discontinuing Coumadin and starting Eliquis 5mg BID. Hgb did drop to 7.7, likely due to anticoagulation and dilutional effect. She has been hemodynamically stable throughout her admission. Ms. Stephen was discharged home on 03/15/16 with [facility]. Adequate followup in place. All questions and concerns were addressed. - Time Spent with Patient Total time spent providing and/or coordinating discharge services: - Constitutional Vitals: Temp Pulse Resp BP Pulse Ox 98.0 F 79 14 110/61 95 03/15/17 07:19 03/15/17 07:19 03/15/17 07:19 03/15/17 07:19 03/15/17 07:19 General appearance: Present: cooperative, A&O X 3, no acute distress, answers questions appropriately - Head Head exam: Present: atraumatic, normocephalic - Eye Eye exam: Present: EOMI, normal appearance, conjuntiva pink, sclera anicteric - ENT ENT exam: Present: mucous membranes moist - Neck Neck exam general surgery: Present: supple, trachea midline - Respiratory Respiratory exam: Present: CTAB. Absent: respiratory distress - Cardiovascular Cardiovascular exam: Present: RRR, +S1, +S2 - GI/Abdominal GI/Abdominal exam: Present: normal bowel sounds, soft. Absent: tenderness - Extremities Exam Extremities exam: Present: warm. Absent: pedal edema, tenderness - Neurological Exam Neurological exam: Present: alert, oriented X3, no focal deficits - Psychiatric Psychiatric exam: Present: normal affect, normal mood - Skin Skin exam: Present: dry, warm <Trino Silva - Last Filed: 03/15/17 18:49> Date of Encounter: 03/15/17 - Discharge Diagnosis (1) DVT (deep venous thrombosis) Status: Acute Qualifiers: DVT location: lower extremity Affected thrombotic vein of extremity: unspecified vein of extremity Chronicity: acute Laterality: right Qualified Code(s): I82.401 - Acute embolism and thrombosis of unspecified deep veins of right lower extremity (2) Systolic CHF Status: Chronic Comments: Not on GALILEO or beta daniella due to medical issues. Qualifiers: Congestive heart failure chronicity: chronic Qualified Code(s): I50.22 - Chronic systolic (congestive) heart failure (3) Anemia Status: Acute Qualifiers: Anemia type: other cause Other causes of anemia: chronic disease, other Qualified Code(s): D63.8 - Anemia in other chronic diseases classified elsewhere (4) CAD (coronary artery disease) Status: Acute Qualifiers: Coronary Disease-Associated Artery/Lesion type: [place] artery [place] vs. transplanted heart: [place] heart Associated angina: without angina Qualified Code(s): I25.10 - Atherosclerotic heart disease of [place] coronary artery without angina pectoris (5) Non-small cell cancer of left lung Status: Resolved Date of admission: 03/14/17 03:38 Primary care physician: Jarvis Isaacs MD Hospital course: Ms. Stephen is a 77 year old female - Time Spent with Patient Total time spent providing and/or coordinating discharge services: 37min - Constitutional Vitals: Temp Pulse Resp BP Pulse Ox 98.3 F 75 14 102/56 97 03/15/17 11:00 03/15/17 11:00 03/15/17 11:00 03/15/17 11:00 03/15/17 11:00 - Attending Attestation I examined this patient and my medical decision-making was reviewed with the Resident Physician on 03/15/17. I agree with the documented findings, disposition and treatment plan as described except to the extent set forth below. Ms Stephen has been admitted for acute DVT. She is now afebrile with stable vitals and ready for discharge home. She will be going on Eliquis. Exam Alert. Comfortable Mucus membranes dry Heart reg No wheeze Plan D/C home today on Eliquis.
[2017-03-15 11:01] VITALS: BP 102/56
--- NOTE | 2017-03-15 12:00 | Oncology Inp Progress Note ---
Date of Encounter: 03/15/17 Time of Encounter: 11:15 (1) DVT (deep venous thrombosis) Current Visit: No Status: Acute Assessment and plan: Discussed doppler findings consistent with RLE acute DVT and LLE chronic thrombosis. Discussing options for anticoagulation on discharge. She did not achieve adequate INR prior to re starting coumadin therapy a few weeks ago (prior to this she was on heparin SQ). She will require lifelong anticoagulation, not interested in IVC filter at this juncture. She had a CABG in August 2016. She is not sure if she has a valvular heart disease in which eliquis would not be indicated, currently working to obtain records from [facility]. Review of literature suggest creatinine 1.5 or below Eliquis 5 mg by mouth twice a day is recommended. If creatinine stays above 1.5 reduced dose to 2.5 mg by mouth twice a day. This is safer than some of the newer anticoagulants and terms of lower risk of bleeding History of NSCLC in remission. Previous patient of Dr. Hernandez with no recent f/u. She denies chest pain or SOB, no hypoxia noted. Given current SUE would not recommend CT with contrast at this time until kidney function improves. Follow up arranged on outpatient basis with oncology. Anemia and SUE stable today, continue to monitor, she remains asymptomatic and denies chest pain, SOB, weakness or dizziness. Workup showed iron B12 folate normal, awaiting other lab results. TSH elevated at 7 and she is on Synthroid. Denies s/s bleeding. May need colonoscopy in future. Anticoagulation may be playing a role in her anemia. CHF history and coronary artery disease status post CABG August 2016 as mentioned Qualifiers: DVT location: lower extremity Affected thrombotic vein of extremity: unspecified vein of extremity Chronicity: acute Laterality: right Qualified Code(s): I82.401 - Acute embolism and thrombosis of unspecified deep veins of right lower extremity Oncology: Subj Interval history: Patient denies pain, has been getting up to use bathroom with minimal assist. Denies chest pain, SOB, weakness or dizziness. Denies leg pain, states this had improved just prior to her admission. No acute s/s distress noted. Discussed options for anticoagulation on d/c, working to obtain records from [facility]ology. - Constitutional Vitals: Vital Signs Temp Pulse Resp BP Pulse Ox 03/15/17 11:00 98.3 F 75 14 102/56 97 03/15/17 07:19 98.0 F 79 14 110/61 95 03/15/17 04:25 97.8 F 80 14 112/66 94 03/14/17 23:05 98.6 F 81 14 96/56 96 03/14/17 21:15 94 03/14/17 20:33 98.1 F 81 16 105/63 94 03/14/17 14:39 75 101/64 Intake and Output 03/14/17 03/15/17 03/15/17 23:59 07:59 15:59 Intake Total 129.0 / 129.0 1000 / 1000 240 / 240 Output Total 0 / 0 500 / 500 Balance 129.0 / 129.0 1000 / 1000 -260 / -260 Intake: IV Fluids 129.0 / 129.0 1000 / 1000 0.9 % Sodium Chloride 1,000 ML 1000 / 1000 @ 75 mls/hr IVC .[id number] [facility] Rx #:[id number] Heparin 25,000 UNIT/500 ML D5W 129.0 / 129.0 25,000 unit In 500 ml @ 14 UNIT /KG/HR 19.94 mls/hr IVC .Q24H [facility] Rx#:[id number] Oral 0 / 0 240 / 240 Output: Urine 0 / 0 500 / 500 Other: Meal Breakfast Percent of Meal Consumed 80% Stool Size Moderate Stool Consistency formed Stool Color Brown # Voids 1 1 # Bowel Movements 1 0 1 Weight 70.7 kg Patient Weight 03/15/17 23:59 Weight 70.7 kg General appearance: cooperative, no acute distress, no febrile - Respiratory Respiratory exam: Present: CTAB. Absent: respiratory distress - Cardiovascular Cardiovascular exam: Present: RRR, +S1, +S2 - Extremities Exam Extremities exam: Present: pedal edema. Absent: calf tenderness, tenderness Additional comments: RLE>LLE, no redness noted to RLE, LLE has chronic discoloration from chronic thrombus - Neurological Exam Neurological exam: Present: alert, oriented X3, strengths equal and symetr throughout. Absent: no focal deficits - Skin Skin exam: Present: pallor Oncology: Obj Data - Labs CBC & Chem 7: 03/15/17 00:40 03/15/17 00:40 - ABG Interpretation ABG results: PT/INR, D-dimer PT 19.6 Seconds (9.4-12.1) H 03/15/17 00:40 Consult Discharge Plan - Plan Instructions: Levothyroxine (By mouth), Apixaban (By mouth), Deep Venous Thrombosis (DC) Referrals: Jarvis Isaacs MD [Primary Care Provider] - Prescriptions: Apixaban [Eliquis] 5 mg PO BID #60 tablet Levothyroxine [Synthroid] 100 mcg PO 0630 #30 tablet
--- NOTE | 2017-03-15 13:30 | Physician Discharge Referral ---
Home Health/Hosp Referral Info Transfer to: Home Health Provider in Charge Post Discharge: PCP - Diagnosis (1) DVT (deep venous thrombosis) Priority: Primary Status: Acute (2) SUE (acute kidney injury) Priority: Primary Status: Acute (3) Non-small cell cancer of left lung Priority: Secondary Status: Resolved (4) CAD (coronary artery disease) Priority: Secondary Status: Acute (5) Systolic CHF Priority: Secondary Status: Chronic (6) Anemia Priority: Secondary Status: Acute - Respiratory Orders Smoking Cessation: Smoking cessation has been advised. For more information, call the [place] Tobacco Quit Line at 2-954-DFXZ-NOW. - Diet/Nutrition Diet/Nutrition Orders: Cardiac - Activity Activity Orders: Ambulate (as PT recommends) - Services Needed Following services are medically necessary services: Nursing, Physical Therapy, Occupational Therapy - Transfer Medications Prescriptions: Apixaban [Eliquis] 5 mg PO BID #60 tablet Levothyroxine [Synthroid] 100 mcg PO 0630 #30 tablet Home Medications: Isosorbide MONOnitrate (24 HR) [Imdur] 30 mg PO DAILY 08/18/16 [History] Nitroglycerin [Nitrostat] 0.4 mg PO Q5M PRN 08/18/16 [History] Amiodarone [Cordarone] 200 mg PO DAILY 03/13/17 [History] Atorvastatin [Lipitor] 40 mg PO HS 03/13/17 [History] Famotidine [Heartburn Prevention] 20 mg PO HS 03/13/17 [History] Furosemide [Lasix] 20 mg PO DAILY 03/13/17 [History] Metoclopramide HCl 2.5 mg PO TID 03/13/17 [History] Midodrine [ProAmatine] 5 mg PO TID 03/13/17 [History] Apixaban [Eliquis] 5 mg PO BID #60 tablet 03/15/17 [Rx] Levothyroxine [Synthroid] 100 mcg PO 0630 #30 tablet 03/15/17 [Rx] Allergies/Adverse Reactions: 3 Allergy/AdvReac Type Severity Reaction Status Date / Time rofecoxib [From Vioxx] Allergy Palpitation Verified 08/18/16 10:36 s Certification: Further, I certify that my clinical findings support that this patient is homebound (i.e. absences from home require considerable and taxing effort and are for medical reasons or mormonism services or infrequently or short duration when for other reasons) because: Homebound Reason: Patient requires assistance of a person or device to safely leave home Attestation: My signature below is to certify that this patient is under my care and that I, or nurse practitioner, or a physician's printer floor covering assistant working with me, has a face-to -face encounter with this patient.
[2017-03-15] MEDS ORDERED: Apixaban 5 MG TABLET PO SCH (14:00)
[2017-03-16 15:45] LABS: Kappa Qnt Free Light Chains 3.11 mg/dL (0.33-1.94); Lambda Qnt Free Light Chains 2.48 mg/dL (0.57-2.63)
[2017-03-17 01:14] LABS: Alpha 2 Globulin (PEP) 0.94 g/dL (0.48-1.05); Beta Globulin (PEP) 0.78 g/dL (0.48-1.10)
[2017-03-17 10:36] LABS: IFE Reflexed NOT DONE
== END 2017-03-15 16:05 | disposition home health service (06) | DRG 300 ==
LOC: 3BNU 16:17 → EMEROO 16:17 → 3BNU 21:20 → SUATTDRO 03-14 03:38 → 3ANU 03-15 01:37
PROVIDERS: ADMIT Internal Medicine; ATTEND Internal Medicine

== ENCOUNTER 2021-07-28 11:04 | Inpatient (IN) ==
[2021-07-28] MEDS ORDERED: Piperacillin/Tazobactam 3.375 GM in 0.9 % Sodium Chloride Mini Bag 100 ML IVPB ONE (12:05)
[2021-07-28] MEDS ORDERED: DilTIAZem 50 MG/50 ML IV.SOLN IVC SCH (12:30)
[2021-07-28 12:52] LABS: Basophils % 0.3 %; Eosinophils # 0.1 K/mcL (0.0-0.6); Eosinophils % 1.1 %; Hematocrit 41.9 % (35.3-44.9); Hemoglobin 13.8 g/dL (11.5-15.4); Immature Granulocytes % 0.4 % (0-4); Lymphocytes # 0.9 K/mcL (0.6-4.6); Lymphocytes % 12.4 %; Mean Corpuscular HGB Conc 32.9 g/dL (31.6-35.5); Mean Corpuscular Hemoglobin 31.8 pg (28.0-33.3); Mean Corpuscular Volume 96.5 fL (83.0-100.0); Mean Platelet Volume 10.4 fL (9.4-12.4); Monocytes % 19.6 %; Neutrophils # 4.9 K/mcL (1.6-8.9); Platelet Count 105 K/mcL (140-400); Red Blood Count 4.34 M/mcL (3.82-4.97); Red Cell Distribution Width 13.1 % (11.5-14.5); Segmented Neutrophils % 66.2 %; White Blood Count 7.4 K/mcL (4.3-11.1)
[2021-07-28 12:54] LABS: Monocytes # 1.5 K/mcL (0.0-1.3)
[2021-07-28 13:12] LABS: Calcium 9.9 mg/dL (8.6-10.3); Potassium 4.1 mEq/L (3.5-5.1)
[2021-07-28 13:16] LABS: Troponin I 0.05 ng/mL (< 0.04)
[2021-07-28 13:18] LABS: Platelet Estimate Decreased (Normal)
[2021-07-28] MEDS ORDERED: Mag Hydrox/Al Hydrox/Simeth 30 ML UDC PO PRN (14:31)
[2021-07-28] MEDS ORDERED: Naloxone 0.4 MG/ML INJ IVP PRN (14:31)
[2021-07-28] MEDS ORDERED: MOM Conc 10 ML UD.LIQ PO PRN (14:31)
[2021-07-28] MEDS ORDERED: Ondansetron ODT 4 MG TAB.RAPDIS SL PRN (14:31)
[2021-07-28] MEDS ORDERED: Vancomycin (wt based) 1,000 MG VIAL IVPB SCH (15:00)
[2021-07-28 15:35] LABS: Adenovirus Not Detected (Not Detect); Bordetella Pertussis Not Detected (Not Detect); Chlamydophila pneumoniae Not Detected (Not Detect); Coronavirus 229E Not Detected (Not Detect); Coronavirus HKU1 Not Detected (Not Detect); Coronavirus NL63 Not Detected (Not Detect); Coronavirus OC43 Not Detected (Not Detect); Human Metapneumovirus Not Detected (Not Detect); Human Rhinovirus/Enterovirus Not Detected (Not Detect); Influenza A Subtype 2009 H1 Not Detected (Not Detect); Influenza B Not Detected (Not Detect); Mycoplasma pneumoniae Not Detected (Not Detect); Parainfluenza Virus 1 Not Detected (Not Detect); Parainfluenza Virus 2 Not Detected (Not Detect); Parainfluenza Virus 3 Not Detected (Not Detect); Parainfluenza Virus 4 Not Detected (Not Detect); Respiratory Syncytial Virus Not Detected (Not Detect); SARS-CoV-2 Not Detected (Not Detect)
[2021-07-28 18:27] LABS: Troponin I 0.05 ng/mL (< 0.04)
[2021-07-28 18:39] LABS: Thyroid Stimulating Hormone 1.12 mcIU/mL (0.340-5.600)
[2021-07-28] MEDS: Piperacillin/Tazobactam 3.375 GM in 0.9 % Sodium Chloride Mini Bag 100 ML IVPB SCH (21:31)
[2021-07-28] MEDS: Famotidine 20 MG TABLET PO SCH (21:32)
[2021-07-28] MEDS: Apixaban 5 MG TABLET PO SCH (21:34)
[2021-07-29 01:04] LABS: Hematocrit 38.2 % (35.3-44.9); Hemoglobin 12.5 g/dL (11.5-15.4); Immature Platelets 3.6 % (1.1-6.1); Mean Corpuscular HGB Conc 32.7 g/dL (31.6-35.5); Mean Corpuscular Hemoglobin 31.4 pg (28.0-33.3); Mean Platelet Volume 10.1 fL (9.4-12.4); Red Blood Count 3.98 M/mcL (3.82-4.97); Red Cell Distribution Width 13.1 % (11.5-14.5); White Blood Count 7.3 K/mcL (4.3-11.1)
[2021-07-29 01:29] LABS: Calcium 9.1 mg/dL (8.6-10.3); Chol/HDL Ratio 2.4 (0-4.9); Magnesium 1.8 mg/dL (1.6-2.6); Potassium 3.9 mEq/L (3.5-5.1)
[2021-07-29 01:42] LABS: Troponin I 0.04 ng/mL (< 0.04)
[2021-07-29] MEDS: Piperacillin/Tazobactam 3.375 GM in 0.9 % Sodium Chloride Mini Bag 100 ML IVPB SCH ×3 (06:01→21:47)
[2021-07-29] MEDS: Acetaminophen 325 MG TABLET PO PRN (06:05)
[2021-07-29] MEDS: Apixaban 5 MG TABLET PO SCH ×3 (09:16→21:49)
[2021-07-29] MEDS ORDERED: *HR* FentaNYL (PF) 100 MCG/2 ML VIAL ONE ×2 (09:45→13:21)
[2021-07-29] MEDS ORDERED: *HR* Propofol 200 MG/20 ML VIAL IVP ONE ×2 (09:45→13:09)
[2021-07-29] MEDS ORDERED: Lidocaine -MPF 2% 2 ML VIAL ONE ×2 (09:46→13:09)
[2021-07-29] MEDS ORDERED: Ondansetron 4 MG/2 ML VIAL ONE (09:46)
[2021-07-29] MEDS ORDERED: Albuterol 2.5 MG/3 ML NEBULIZER IH PRN (10:26)
[2021-07-29] MEDS ORDERED: Naloxone 0.4 MG/ML INJ IVP PRN (10:26)
[2021-07-29] MEDS ORDERED: Ondansetron 4 MG/2 ML VIAL IVP PRN (10:26)
[2021-07-29] MEDS ORDERED: Nitroglycerin 0.4 MG TAB.SUBL SL PRN (10:26)
[2021-07-29] MEDS ORDERED: *HR* Rocuronium Bromide 50 MG/5 ML VIAL ONE (11:41)
[2021-07-29] MEDS ORDERED: *HR* Succinylcholine 200 MG/10 ML VIAL IVP ONE (13:10)
[2021-07-29] MEDS ORDERED: Lidocaine HCL 4 ML Topical Solution (Laryng-O-Jet Kit Sterile Pak) TP ONE (13:11)
[2021-07-29 17:08] LABS: Volume of Body Fluid 11 mL
[2021-07-29] MEDS: MethylPREDNISolone 40 MG/ML VIAL IVP SCH ×2 (17:08→23:55)
[2021-07-29 17:09] LABS: Appearance of Body Fluid Hazy (Clear)
[2021-07-29] MEDS: Famotidine 20 MG TABLET PO SCH (21:50)
[2021-07-30] MEDS ORDERED: *HR* Metoprolol 5 MG/5 ML VIAL IVP ONE ×5 (02:12→14:41)
[2021-07-30 02:57] LABS: Basophils % 0.3 %; Hematocrit 39.8 % (35.3-44.9); Hemoglobin 12.8 g/dL (11.5-15.4); Immature Granulocytes % 0.5 % (0-4); Lymphocytes # 0.5 K/mcL (0.6-4.6); Lymphocytes % 13.6 %; Mean Corpuscular HGB Conc 32.2 g/dL (31.6-35.5); Mean Corpuscular Volume 96.4 fL (83.0-100.0); Mean Platelet Volume 10.1 fL (9.4-12.4); Monocytes # 0.1 K/mcL (0.0-1.3); Monocytes % 2.6 %; Neutrophils # 3.2 K/mcL (1.6-8.9); Platelet Count 113 K/mcL (140-400); Red Blood Count 4.13 M/mcL (3.82-4.97); Red Cell Distribution Width 12.8 % (11.5-14.5); White Blood Count 3.9 K/mcL (4.3-11.1)
[2021-07-30 03:18] LABS: Calcium 9.1 mg/dL (8.6-10.3); Potassium 4.4 mEq/L (3.5-5.1)
[2021-07-30] MEDS: Acetaminophen 325 MG TABLET PO PRN (05:35)
[2021-07-30] MEDS: Piperacillin/Tazobactam 3.375 GM in 0.9 % Sodium Chloride Mini Bag 100 ML IVPB SCH ×3 (05:36→21:22)
[2021-07-30] MEDS: Apixaban 5 MG TABLET PO SCH ×2 (09:38→21:22)
[2021-07-30] MEDS: MethylPREDNISolone 40 MG/ML VIAL IVP SCH ×2 (09:39→21:21)
[2021-07-30] MEDS ORDERED: Dextrose 4 GM Chewable Tablets PO PRN ×2 (20:59)
[2021-07-30] MEDS ORDERED: D5% in Water 1,000 ML IVC PRN (20:59)
[2021-07-30] MEDS ORDERED: *HR* Dextrose 50 % in Water (Syg) 50 ML SYRINGE IVP PRN (20:59)
[2021-07-30] MEDS: Insulin LISPRO 300 UNITS/3 ML VIAL SUBQ SCH (21:20)
[2021-07-30] MEDS: Famotidine 20 MG TABLET PO SCH (21:22)
[2021-07-31] MEDS: DilTIAZem 50 MG/50 ML IV.SOLN IVC SCH ×2 (00:57→15:06)
[2021-07-31] MEDS: Insulin LISPRO 300 UNITS/3 ML VIAL SUBQ SCH ×5 (04:23→23:41)
[2021-07-31] MEDS: Piperacillin/Tazobactam 3.375 GM in 0.9 % Sodium Chloride Mini Bag 100 ML IVPB SCH ×3 (05:36→21:20)
[2021-07-31] MEDS: Apixaban 5 MG TABLET PO SCH ×2 (08:37→21:21)
[2021-07-31] MEDS: MethylPREDNISolone 40 MG/ML VIAL IVP SCH ×2 (08:38→21:21)
[2021-07-31 09:31] LABS: Basophils % 0.1 %; Hemoglobin 11.4 g/dL (11.5-15.4); Immature Granulocytes % 0.3 % (0-4); Lymphocytes # 0.8 K/mcL (0.6-4.6); Lymphocytes % 6.1 %; Mean Corpuscular HGB Conc 32.6 g/dL (31.6-35.5); Mean Corpuscular Hemoglobin 31.3 pg (28.0-33.3); Mean Corpuscular Volume 96.2 fL (83.0-100.0); Mean Platelet Volume 10.2 fL (9.4-12.4); Monocytes # 0.7 K/mcL (0.0-1.3); Monocytes % 5.8 %; Platelet Count 143 K/mcL (140-400); Red Blood Count 3.64 M/mcL (3.82-4.97); Segmented Neutrophils % 87.7 %
[2021-07-31 09:32] LABS: White Blood Count 12.5 K/mcL (4.3-11.1)
[2021-07-31 09:52] LABS: Calcium 8.7 mg/dL (8.6-10.3); Potassium 4.4 mEq/L (3.5-5.1)
[2021-07-31] MEDS: Dextromethorphan Polistrx(12h) 30 MG/5 ML UDC PO PRN ×2 (10:35→23:06)
[2021-07-31] MEDS: Acetaminophen 325 MG TABLET PO PRN (10:50)
[2021-07-31] MEDS ORDERED: Ringers Solution, Lactated 1,000 ML IVC SCH (13:45)
[2021-07-31] MEDS: Doxycycline 100 MG CAPSULE PO SCH ×2 (13:58→21:21)
[2021-07-31] MEDS: Acetylcysteine 10% 2 ML INHSOL IH SCH ×2 (15:27→22:49)
[2021-07-31] MEDS: Famotidine 20 MG TABLET PO SCH (21:21)
[2021-07-31] MEDS: Ipratropium/Albuterol Neb 3 ML IH PRN (22:49)
[2021-08-01] MEDS: Piperacillin/Tazobactam 3.375 GM in 0.9 % Sodium Chloride Mini Bag 100 ML IVPB SCH ×3 (05:18→21:18)
[2021-08-01] MEDS: Insulin LISPRO 300 UNITS/3 ML VIAL SUBQ SCH ×3 (05:18→18:13)
[2021-08-01 05:37] LABS: Basophils % 0.2 %; Hematocrit 35.8 % (35.3-44.9); Hemoglobin 11.5 g/dL (11.5-15.4); Immature Granulocytes % 1.2 % (0-4); Lymphocytes # 0.6 K/mcL (0.6-4.6); Lymphocytes % 5.7 %; Mean Corpuscular HGB Conc 32.1 g/dL (31.6-35.5); Mean Corpuscular Hemoglobin 31.3 pg (28.0-33.3); Mean Corpuscular Volume 97.3 fL (83.0-100.0); Mean Platelet Volume 9.9 fL (9.4-12.4); Monocytes # 0.3 K/mcL (0.0-1.3); Monocytes % 3.3 %; Neutrophils # 8.8 K/mcL (1.6-8.9); Platelet Count 124 K/mcL (140-400); Red Blood Count 3.68 M/mcL (3.82-4.97); Red Cell Distribution Width 13.1 % (11.5-14.5); Segmented Neutrophils % 89.6 %; White Blood Count 9.8 K/mcL (4.3-11.1)
[2021-08-01 05:56] LABS: Calcium 8.9 mg/dL (8.6-10.3); Potassium 4.4 mEq/L (3.5-5.1)
[2021-08-01] MEDS: MethylPREDNISolone 40 MG/ML VIAL IVP SCH (07:33)
[2021-08-01] MEDS: Doxycycline 100 MG CAPSULE PO SCH ×2 (07:34→21:21)
[2021-08-01] MEDS: Apixaban 5 MG TABLET PO SCH ×2 (07:34→21:21)
[2021-08-01] MEDS: Acetylcysteine 10% 2 ML INHSOL IH SCH (07:41)
[2021-08-01] MEDS: Ipratropium/Albuterol Neb 3 ML IH PRN (07:41)
[2021-08-01] MEDS ORDERED: Metoprolol XL (24 HR) Succ 25 MG TAB.ER.24H PO SCH (09:00)
[2021-08-01] MEDS: Metoprolol XL (24 HR) Succ 25 MG TAB.ER.24H PO SCH (14:08)
[2021-08-01] MEDS: DilTIAZem 50 MG/50 ML IV.SOLN IVC SCH (14:17)
[2021-08-01] MEDS: Famotidine 20 MG TABLET PO SCH (21:21)
[2021-08-01] MEDS: Acetaminophen 325 MG TABLET PO PRN (21:28)
[2021-08-02] MEDS: Insulin LISPRO 300 UNITS/3 ML VIAL SUBQ SCH ×2 (01:00→05:41)
[2021-08-02] MEDS: Piperacillin/Tazobactam 3.375 GM in 0.9 % Sodium Chloride Mini Bag 100 ML IVPB SCH ×3 (05:05→20:56)
[2021-08-02 05:36] LABS: Basophils % 0.4 %; Eosinophils % 0.1 %; Hematocrit 35.9 % (35.3-44.9); Hemoglobin 11.7 g/dL (11.5-15.4); Immature Granulocytes % 1.3 % (0-4); Lymphocytes # 1.2 K/mcL (0.6-4.6); Lymphocytes % 15.7 %; Mean Corpuscular HGB Conc 32.6 g/dL (31.6-35.5); Mean Corpuscular Hemoglobin 31.1 pg (28.0-33.3); Mean Corpuscular Volume 95.5 fL (83.0-100.0); Monocytes # 0.9 K/mcL (0.0-1.3); Monocytes % 11.6 %; Neutrophils # 5.5 K/mcL (1.6-8.9); Platelet Count 132 K/mcL (140-400); Red Blood Count 3.76 M/mcL (3.82-4.97); Red Cell Distribution Width 13.2 % (11.5-14.5); Segmented Neutrophils % 70.9 %; White Blood Count 7.7 K/mcL (4.3-11.1)
[2021-08-02 05:49] LABS: Calcium 8.9 mg/dL (8.6-10.3); Magnesium 1.8 mg/dL (1.6-2.6)
[2021-08-02] MEDS ORDERED: Ringers Solution, Lactated 1,000 ML IVC SCH (07:45)
[2021-08-02] MEDS ORDERED: *HR* Metoprolol 5 MG/5 ML VIAL IVP ONE ×4 (08:20→08:29)
[2021-08-02] MEDS: Aspirin Enteric Coated 81 MG Tablet PO SCH (08:31)
[2021-08-02] MEDS: Doxycycline 100 MG CAPSULE PO SCH ×2 (08:32→20:56)
[2021-08-02] MEDS: Metoprolol XL (24 HR) Succ 25 MG TAB.ER.24H PO SCH ×2 (08:32→20:57)
[2021-08-02] MEDS: Apixaban 5 MG TABLET PO SCH ×2 (08:32→20:56)
[2021-08-02] MEDS: predniSONE 20 MG TABLET PO SCH (08:32)
[2021-08-02 10:11] LABS: Bilirubin,Urine Negative (Negative); Blood,Urine Negative (Negative); Clarity,Urine Clear (Clear); Color,Urine Colorless (Yellow); Glucose,Urine (UA) Normal (Normal); Ketones,Urine Negative (Negative); Leukocyte Esterase,Urine Negative (Negative); Nitrite,Urine Negative (Negative); Protein,Urine Negative (Neg-Trace); Specific Gravity,Urine 1.014 (1.010-1.025); Urobilinogen,Urine Normal (Normal)
[2021-08-02 10:12] LABS: Protein/Creatinine Ratio,Urine 0.15 mg/mg (0.00-0.20)
[2021-08-02] MEDS: Famotidine 20 MG TABLET PO SCH (20:56)
[2021-08-02] MEDS: Acetaminophen 325 MG TABLET PO PRN (20:56)
[2021-08-03] MEDS: Piperacillin/Tazobactam 3.375 GM in 0.9 % Sodium Chloride Mini Bag 100 ML IVPB SCH ×3 (04:58→20:42)
[2021-08-03 05:23] LABS: Basophils % 0.3 %; Eosinophils % 0.2 %; Hematocrit 34.8 % (35.3-44.9); Hemoglobin 11.3 g/dL (11.5-15.4); Immature Granulocytes % 1.1 % (0-4); Lymphocytes % 15.6 %; Mean Corpuscular HGB Conc 32.5 g/dL (31.6-35.5); Mean Corpuscular Hemoglobin 30.6 pg (28.0-33.3); Mean Corpuscular Volume 94.3 fL (83.0-100.0); Mean Platelet Volume 10.1 fL (9.4-12.4); Monocytes # 0.7 K/mcL (0.0-1.3); Monocytes % 11.3 %; Neutrophils # 4.5 K/mcL (1.6-8.9); Platelet Count 130 K/mcL (140-400); Red Blood Count 3.69 M/mcL (3.82-4.97); Red Cell Distribution Width 12.9 % (11.5-14.5); Segmented Neutrophils % 71.5 %; White Blood Count 6.4 K/mcL (4.3-11.1)
[2021-08-03 05:41] LABS: Calcium 8.3 mg/dL (8.6-10.3); Magnesium 2.1 mg/dL (1.6-2.6); Potassium 4.2 mEq/L (3.5-5.1)
[2021-08-03 05:59] LABS: Uric Acid 3.3 mg/dL (2.3-7.6)
[2021-08-03] MEDS: Insulin LISPRO 300 UNITS/3 ML VIAL SUBQ SCH (07:41)
[2021-08-03] MEDS: Doxycycline 100 MG CAPSULE PO SCH ×2 (09:03→20:42)
[2021-08-03] MEDS: Apixaban 5 MG TABLET PO SCH ×2 (09:03→20:42)
[2021-08-03] MEDS: Aspirin Enteric Coated 81 MG Tablet PO SCH (09:03)
[2021-08-03] MEDS: predniSONE 20 MG TABLET PO SCH (09:03)
[2021-08-03] MEDS: Metoprolol XL (24 HR) Succ 25 MG TAB.ER.24H PO SCH ×2 (09:04→20:42)
[2021-08-03 09:35] LABS: Complement C3 112 mg/dL (87-200)
[2021-08-03] MEDS: Acetaminophen 325 MG TABLET PO PRN (20:42)
[2021-08-03] MEDS: Famotidine 20 MG TABLET PO SCH (20:42)
[2021-08-04] MEDS: Piperacillin/Tazobactam 3.375 GM in 0.9 % Sodium Chloride Mini Bag 100 ML IVPB SCH ×2 (04:51→12:53)
[2021-08-04 05:12] LABS: Basophils % 0.3 %; Eosinophils % 0.1 %; Hematocrit 34.3 % (35.3-44.9); Hemoglobin 11.5 g/dL (11.5-15.4); Immature Granulocytes % 1.1 % (0-4); Lymphocytes # 1.1 K/mcL (0.6-4.6); Mean Corpuscular HGB Conc 33.5 g/dL (31.6-35.5); Mean Corpuscular Hemoglobin 31.8 pg (28.0-33.3); Mean Corpuscular Volume 94.8 fL (83.0-100.0); Mean Platelet Volume 9.8 fL (9.4-12.4); Monocytes # 0.7 K/mcL (0.0-1.3); Monocytes % 8.9 %; Platelet Count 130 K/mcL (140-400); Red Blood Count 3.62 M/mcL (3.82-4.97); Segmented Neutrophils % 75.6 %; White Blood Count 7.9 K/mcL (4.3-11.1)
[2021-08-04 05:28] LABS: Calcium 8.3 mg/dL (8.6-10.3); Potassium 4.1 mEq/L (3.5-5.1)
[2021-08-04] MEDS: Doxycycline 100 MG CAPSULE PO SCH (08:00)
[2021-08-04] MEDS: Apixaban 5 MG TABLET PO SCH (08:00)
[2021-08-04] MEDS: predniSONE 20 MG TABLET PO SCH (08:00)
[2021-08-04] MEDS: Metoprolol XL (24 HR) Succ 25 MG TAB.ER.24H PO SCH (08:01)
[2021-08-04] MEDS: Aspirin Enteric Coated 81 MG Tablet PO SCH (08:02)
[2021-08-04] MEDS ORDERED: Perflutren Lipid Microsphere 1.3 ML in 0.9 % Sodium Chloride 8.7 ML IVP PRN (09:47)
[2021-08-04 11:34] VITALS: BP 125/102; PULSE 77; TEMP 97.2; O2SAT 98
[2021-08-05 10:39] LABS: Kappa Qnt Free Light Chains 15.96 mg/L (3.30-19.40); Lambda Qnt Free Light Chains 12.31 mg/L (5.71-26.30)
== END 2021-08-04 15:30 | disposition home health service (06) | DRG 871 ==
LOC: 3NENU 11:04 → EMEROOARM 11:04 → SUATTDRO 14:37 → 3NENU 14:53 → SUATTDRO 07-29 12:29
PROVIDERS: ADMIT Pharmacist; ATTEND Hospitalist